=== PATIENT | male | born 1985 | race Caucasian/White ===

== ENCOUNTER 2023-11-29 16:18 | Inpatient (IN) | payer MEDICARE, OTHER ==
--- NOTE | 2023-11-29 16:55 | ED ---
General Adult HPI - General Chief complaint: Weakness Stated complaint: Diabetic, Pain Time Seen by Provider: 11/29/23 16:29 Source: patient, EMS, RN notes reviewed, old records reviewed Mode of arrival: EMS Limitations: no limitations, physical limitation - History of Present Illness Initial comments: Patient is a 38-year-old male who presents emergency department complaining of weakness episode as well as generalized body aches. Patient has a history of chronic hypoxic respiratory failure on 4 L nasal cannula, CKD and receives hemodialysis Thursday and Thursday. Also is a history of chronic weeping lower extremity wounds. States that his blood pressure this morning was low. States systolic was 100-110 which is normal for him. He has not missed any rounds of dialysis. States that when his pressure does drop like this he begins developing body aches. States he is having his typical symptoms complaining of bilateral shoulder aches, arm aches, chest wall aches, abdominal wall aches. Worse with movement as well as with palpation. Apparently dialysis run on Thursday was shorter due to blood pressure issues. Denies any fevers, chills, cough. Denies any nausea vomiting diarrhea. Endorses generalized bodyaches. Presents for further evaluation at this time. - Related Data Home Medications Medication Instructions Recorded Confirmed Atorvastatin [Lipitor] 20 mg PO DAILY 11/29/23 11/29/23 Calcium Acetate [Phoslo] 1,334 mg PO TID-W/MEALS 11/29/23 11/29/23 Glucagon Emergency Kit 1 mg IM DIRECTED PRN 11/29/23 11/29/23 Insulin Glargine,Hum.rec.anlog 10 units SQ HS 11/29/23 11/29/23 [Lantus Solostar Pen] Insulin Glargine,Hum.rec.anlog 20 units SQ DAILY 11/29/23 11/29/23 [Lantus Solostar Pen] Insulin Lispro [humaLOG Kwikpen] 5 unit SQ AC-TID 11/29/23 11/29/23 Insulin Lispro [humaLOG Kwikpen] See Protocol SQ AC-TID 11/29/23 11/29/23 Losartan [Cozaar] 25 mg PO DAILY 11/29/23 11/29/23 Mupirocin 2% Oint [Bactroban 2% 1 applic TOPICAL TID PRN 11/29/23 11/29/23 Oint] Ondansetron [Zofran] 4 mg PO Q12HR PRN 11/29/23 11/29/23 Pantoprazole Sodium [Protonix] 40 mg PO BID 11/29/23 11/29/23 Sertraline [Zoloft] 50 mg PO DAILY 11/29/23 11/29/23 amLODIPine [Norvasc] 5 mg PO DAILY 11/29/23 11/29/23 carvediloL [Coreg] 25 mg PO BID 11/29/23 11/29/23 hydrALAZINE HCL [Apresoline] 100 mg PO TID 11/29/23 11/29/23 Allergies Allergy/AdvReac Type Severity Reaction Status Date / Time sulfamethoxazole Allergy Rash/Hives Verified 11/29/23 18:50 [From Bactrim] trimethoprim [From Bactrim] Allergy Rash/Hives Verified 11/29/23 18:50 Iodinated Contrast Media AdvReac Intermediate Nausea & Verified 11/29/23 18:50 Vomiting acetaminophen [From [place]] AdvReac Nausea & Verified 11/29/23 18:50 Vomiting gabapentin AdvReac Confusion Verified 11/29/23 18:50 hydrocodone [From [place]] AdvReac Nausea & Verified 11/29/23 18:50 Vomiting Review of Systems ROS Statement: Those systems with pertinent positive or pertinent negative responses have been documented in the HPI. Review of Systems: CONST: Denies fever EYES: Denies blurry vision ENT: Denies nasal congestion C/V: Denies Chest pain RESP: Denies shortness of breath GI: Denies abdominal pain : Denies dysuria SKIN: Denies rash. MSK: Endorses body aches NEURO: Denies headache ROS Other: All systems not noted in ROS Statement are negative. Past Medical History Past Medical History: Diabetes Mellitus, Hypertension, Renal Disease History of Any Multi-Drug Resistant Organisms: MRSA Past Psychological History: Anxiety, Depression Smoking Status: Former smoker Past Alcohol Use History: None Reported Past Drug Use History: None Reported General Exam - General Exam Comments Initial Comments: General: Appears in no acute distress. HEAD: Normal with no signs of head trauma. EYES: PERRLA, EOMI, conjunctiva normal, no discharge. ENT: Hearing grossly intact, normal oropharynx. RESPIRATORY: Clear breath sounds bilaterally. No wheezes, rales, or rhonchi. C/V: Regular rate and rhythm. S1 and S2 auscultated, peripheral pulses 2+ and intact throughout. Left upper extremity AV fistula has palpable thrill and audible bruit. ABD: Abd is soft, nontender, nondistended EXT: Normal range of motion, no obvious deformity SKIN: Chronic weeping lower extremity wounds. Recently completed a course of antibiotics within the last few weeks. NEURO: Alert and oriented x 4. Cranial nerves II-XII intact. No focal sensory or strength deficits. Limitations: no limitations, physical limitation Course Vital Signs 11/29/23 11/29/23 16:37 22:42 Pulse Rate 94 94 Respiratory 16 18 Rate Blood Pressure 143/72 151/90 O2 Sat by Pulse 100 100 Oximetry Medical Decision Making - Medical Decision Making Was pt. sent in by a medical professional or institution (, [facility], [employer], urgent care, hospital, or long-term...) When possible be specific @ -No Did you speak to anyone other than the patient for history (EMS, parent, family, police, friend...)? What history was obtained from this source @ -No Did you review nursing and triage notes (agree or disagree)? Why? @ -I reviewed and agree with nursing and triage notes Were old charts reviewed (outside hosp., previous admission, EMS record, old EKG, old radiological studies, urgent care reports/EKG's, long-term records)? Report findings @ -No old charts were reviewed Differential Diagnosis (chest pain, altered mental status, abdominal pain women, abdominal pain men, vaginal bleeding, weakness, fever, dyspnea, syncope, headache, dizziness, GI bleed, back pain, seizure, CVA, palpatations, mental health, musculoskeletal)? @ -Differential Weakness: Hypoglycemia, shock, sepsis, hyponatremia, anemia, infection, AR, ETOH, adverse medicine reaction, overdose, stroke, this is not meant to be an all-inclusive list. EKG interpreted by me (3pts min.). @ -As above X-rays interpreted by me (1pt min.). @ -Chest x-ray reveals no obvious acute cardiopulmonary process. CT interpreted by me (1pt min.). @ -None done U/S interpreted by me (1pt. min.). @ -None done What testing was considered but not performed or refused? (CT, X-rays, U/S, labs)? Why? @ -None What meds were considered but not given or refused? Why? @ -None Did you discuss the management of the patient with other professionals (professionals i.e. , PA, [employer], lab, RT, psych nurse, long term care social worker, registered representative, teacher, chairman and chief executive officer, special education case manager)? Give summary @ -I spoke with nephrology on-call Dr. Ames who was in agreement the plan for the hyperkalemia cocktail consisting of the calcium, Lokelma, bicarb, insulin. Requested that I obtain repeat potassium and call him back. This will be done. Repeat potassium did show improvement with potassium now being 5.6. I did discuss with Dr. Ames who recommended an additional dose of Lokelma and morning labs. No need for emergent dialysis this evening. I spoke with the admitting team, HAKEEM Bernal of [facility] accepted the admission. Was smoking cessation discussed for >3mins.? @ -No Was critical care preformed (if so, how long)? @ -Yes 38 minutes Were there social determinants of health that impacted care today? How? (Homelessness, low income, unemployed, alcoholism, drug addiction, transportation, low edu. Level, literacy, decrease access to med. care, assisted, rehab)? @ -No Was there de-escalation of care discussed even if they declined (Discuss DNR or withdrawal of care, Hospice)? DNR status @ -No What co-morbidities impacted this encounter? (DM, HTN, Smoking, COPD, CAD, Cancer, CVA, ARF, Chemo, Hep., AIDS, mental health diagnosis, sleep apnea, morbid obesity)? @ -None Was patient admitted / discharged? Hospital course, mention meds given and route, prescriptions, significant lab abnormalities, going to OR and other pertinent info. @ -Patient is a diabetic, on dialysis. Has not missed any rounds but did have a shorter run on Thursday. Is due to have dialysis tomorrow. Is endorsing generalized body aches which occurs when his blood pressure runs low which happened this morning. He is still having generalized bodyaches of his abdomen, back, bilateral shoulders, bilateral chest wall worse with palpation as well as with movements. Experiences this regularly in the past. Presents for further evaluation at this time. Vital signs currently within acceptable limits. He will receive IV analgesia meds and Zofran. Will obtain basic labs as well as chest x-ray and screening EKG. Patient in agreement this plan. Chest x-ray shows no obvious acute cardiopulmonary process. EKG shows no signs of acute ischemia. Patient's laboratory studies returned remarkable for anemia with a hemoglobin of 10.6. Patient's labs support mild DKA with VBG showing acidosis with pH of 7.29, bicarb of 18. Patient also has positive acetone's in the blood. Blood glucose is 243. Labs also remarkable for the anion gap metabolic acidosis as well as hyperkalemia at 6.8. Patient given hyperkalemia cocktail minus albuterol due to patient declining due to previous reactions. Patient was also started on insulin drip for DKA. Patient will be empirically started on vancomycin for his lower extremity infections. Patient was in agreement this plan. He will be admitted. I spoke with nephrology on-call Dr. Ames who was in agreement the plan for the hyperkalemia cocktail consisting of the calcium, Lokelma, bicarb, insulin. Requ ested that I obtain repeat potassium and call him back. This will be done. Repeat potassium did show improvement with potassium now being 5.6. I did discuss with Dr. Ames who recommended an additional dose of Lokelma and morning labs. No need for emergent dialysis this evening. Patient was in agreement this plan. Dr. Lind of infectious disease consulted for the legs. I spoke with the adm itting team, HAKEEM Bernal of [facility] accepted the admission. Undiagnosed new problem with uncertain prognosis? @ -No Drug Therapy requiring intensive monitoring for toxicity (Heparin, Nitro, Insulin, Cardizem)? @ -No Were any procedures done? @ -No Diagnosis/symptom? @ -Lower extremity cellulitis, DKA, hyperkalemia in the setting of ESRD on hemodialysis Acute, or Chronic, or Acute on Chronic? @ -Acute Uncomplicated (without systemic symptoms) or Complicated (systemic symptoms)? @ -Complicated Side effects of treatment? @ -None Exacerbation, Progression, or Severe Exacerbation] @ -No Poses a threat to life or bodily function? @ -Yes - Lab Data Result diagrams: 11/29/23 17:36 11/29/23 21:30 Lab Results 11/29/23 11/29/23 11/29/23 Range/Units 17:36 17:36 17:36 WBC 8.8 (3.8-10.6) k/uL RBC 3.68 L (4.30-5.90) m/uL Hgb 10.6 L (13.0-17.5) gm/dL Hct 34.6 L (39.0-53.0) % MCV 93.8 (80.0-100.0) fL MCH 28.9 (25.0-35.0) pg MCHC 30.8 L (31.0-37.0) g/dL RDW 15.8 H (11.5-15.5) % Plt Count 247 (150-450) k/uL MPV 7.7 Neutrophils % 80 % Lymphocytes % 7 % Monocytes % 8 % Eosinophils % 3 % Basophils % 1 % Neutrophils # 7.0 (1.3-7.7) k/uL Lymphocytes # 0.6 L (1.0-4.8) k/uL Monocytes # 0.7 (0-1.0) k/uL Eosinophils # 0.3 (0-0.7) k/uL Basophils # 0.1 (0-0.2) k/uL Hypochromasia Moderate PT 11.3 (10.0-12.5) sec INR 1.0 (<1.2) APTT 28.0 (22.0-30.0) sec VBG pH (7.31-7.41) VBG pCO2 (37-51) mmHg VBG HCO3 (24-28) mmol/L Sodium 137 (137-145) mmol/L Potassium 6.8 H* (3.5-5.1) mmol/L Chloride 102 (98-107) mmol/L Carbon Dioxide 12 L (22-30) mmol/L Anion Gap 23 mmol/L BUN 91 H (9-20) mg/dL Creatinine 8.38 H* (0.66-1.25) mg/dL Est GFR (CKD-EPI)AfAm 8 (>60 ml/min/1.73 sqM) Est GFR (CKD-EPI)NonAf 7 (>60 ml/min/1.73 sqM) Glucose 243 H (74-99) mg/dL Plasma Lactic Acid Karl (0.7-2.0) mmol/L Calcium 7.7 L (8.4-10.2) mg/dL Magnesium 2.3 (1.6-2.3) mg/dL Total Bilirubin 1.1 (0.2-1.3) mg/dL AST 39 (17-59) U/L ALT 24 (4-49) U/L Alkaline Phosphatase 906 H (38-126) U/L Total Protein 8.2 (6.3-8.2) g/dL Albumin 4.0 (3.5-5.0) g/dL Acetone, Qual Positive (Negative) Influenza Type A (PCR) (Not Detectd) Influenza Type B (PCR) (Not Detectd) RSV (PCR) (Not Detectd) SARS-CoV-2 (PCR) (Not Detectd) 11/29/23 11/29/23 11/29/23 Range/Units 17:36 17:36 17:36 WBC (3.8-10.6) k/uL RBC (4.30-5.90) m/uL Hgb (13.0-17.5) gm/dL Hct (39.0-53.0) % MCV (80.0-100.0) fL MCH (25.0-35.0) pg MCHC (31.0-37.0) g/dL RDW (11.5-15.5) % Plt Count (150-450) k/uL MPV Neutrophils % % Lymphocytes % % Monocytes % % Eosinophils % % Basophils % % Neutrophils # (1.3-7.7) k/uL Lymphocytes # (1.0-4.8) k/uL Monocytes # (0-1.0) k/uL Eosinophils # (0-0.7) k/uL Basophils # (0-0.2) k/uL Hypochromasia PT (10.0-12.5) sec INR (<1.2) APTT (22.0-30.0) sec VBG pH 7.29 L (7.31-7.41) VBG pCO2 38 (37-51) mmHg VBG HCO3 18 L (24-28) mmol/L Sodium (137-145) mmol/L Potassium (3.5-5.1) mmol/L Chloride (98-107) mmol/L Carbon Dioxide (22-30) mmol/L Anion Gap mmol/L BUN (9-20) mg/dL Creatinine (0.66-1.25) mg/dL Est GFR (CKD-EPI)AfAm (>60 ml/min/1.73 sqM) Est GFR (CKD-EPI)NonAf (>60 ml/min/1.73 sqM) Glucose (74-99) mg/dL Plasma Lactic Acid Karl 1.1 (0.7-2.0) mmol/L Calcium (8.4-10.2) mg/dL Magnesium (1.6-2.3) mg/dL Total Bilirubin (0.2-1.3) mg/dL AST (17-59) U/L ALT (4-49) U/L Alkaline Phosphatase (38-126) U/L Total Protein (6.3-8.2) g/dL Albumin (3.5-5.0) g/dL Acetone, Qual (Negative) Influenza Type A (PCR) Not Detected (Not Detectd) Influenza Type B (PCR) Not Detected (Not Detectd) RSV (PCR) Not Detected (Not Detectd) SARS-CoV-2 (PCR) Not Detected (Not Detectd) - EKG Data -: EKG Interpreted by Me EKG Comments: 12-lead Electrocardiogram Interpretation Note EKG was reviewed and interpreted by myself. 12-lead ECG performed at default value is interpreted by me as revealing normal sinus rhythm at a rate of default value beats per minute. Hartman is normal. There were no ST or T wave abnormalities to suggest myocardial ischemia or injury. R wave progression across the precordium was satisfactory. By my interpretation this EKG is non- diagnostic for acute ischemia. Disposition Clinical Impression: DKA (diabetic ketoacidosis), ESRD on hemodialysis, Bilateral lower leg cellulitis, Hyperkalemia Disposition: ADMITTED IP TO THIS HOSP Condition: Serious Time of Disposition: 19:35
[2023-11-29] MEDS: MORPHINE SULFATE 4 MG/ML SYRINGE IVP STA ×2 (17:28→18:52)
[2023-11-29] MEDS: ONDANSETRON 4 MG/2 ML VIAL IVP STA (17:29)
[2023-11-29 17:52] LABS: VBG PH 7.29 (7.31-7.41)
[2023-11-29 17:53] LABS: Basophils # (A) 0.1 k/uL (0-0.2); Basophils % (A) 1 %; Eosinophils # (A) 0.3 k/uL (0-0.7); Eosinophils % (A) 3 %; HCT 34.6 % (39.0-53.0); HGB 10.6 gm/dL (13.0-17.5); Hypochromasia Moderate; Lymphocytes # (A) 0.6 k/uL (1.0-4.8); Lymphocytes % (A) 7 %; MCH 28.9 pg (25.0-35.0); MCHC 30.8 g/dL (31.0-37.0); MCV 93.8 fL (80.0-100.0); Mean Platelet Volume 7.7; Monocytes # (A) 0.7 k/uL (0-1.0); Monocytes % (A) 8 %; Neutrophils % (A) 80 %; Platelet Count 247 k/uL (150-450); RBC 3.68 m/uL (4.30-5.90); RDW 15.8 % (11.5-15.5); WBC 8.8 k/uL (3.8-10.6)
--- NOTE | 2023-11-29 17:59 | XR ---
EXAMINATION TYPE: XR chest 2V DATE OF EXAM: 11/29/2023 5:49 PM CLINICAL INDICATION:Male, 38 years old with history of Weakness; COMPARISON: None TECHNIQUE: XR chest 2V Frontal view of the chest. FINDINGS: Lungs/Pleura: Low lung volumes are present. There is no evidence of pleural effusion, focal consolida tion, or pneumothorax. Pulmonary vascularity: Unremarkable. Heart/mediastinum: Cardiomediastinal silhouette is unremarkable. Musculoskeletal: No acute osseous pathology. Other findings: None IMPRESSION: Low lung volumes with a generalized hazy appearance which could represent atelectasis.
[2023-11-29 18:02] LABS: Prothrombin Time 11.3 sec (10.0-12.5)
[2023-11-29 18:08] LABS: ALT 24 U/L (4-49); AST 39 U/L (17-59); African American GFR (CKD) 8 (>60 ml/min/1.73 sqM); Alkaline Phosphatase 906 U/L (38-126); Anion Gap 23 mmol/L; Blood Urea Nitrogen 91 mg/dL (9-20); Calcium 7.7 mg/dL (8.4-10.2); Carbon Dioxide 12 mmol/L (22-30); Chloride 102 mmol/L (98-107); Glucose 243 mg/dL (74-99); Magnesium 2.3 mg/dL (1.6-2.3); Non-African American GFR(CKD) 7 (>60 ml/min/1.73 sqM); Sodium 137 mmol/L (137-145); Total Bilirubin 1.1 mg/dL (0.2-1.3); Total Protein 8.2 g/dL (6.3-8.2)
[2023-11-29 18:21] LABS: Potassium 6.8 mmol/L (3.5-5.1)
[2023-11-29] MEDS ORDERED: VANCOMYCIN IV PER PHARMACY 1 EACH MISC MISCELLANE PRN (18:41)
[2023-11-29] MEDS ORDERED: DEXTROSE 50% SYRINGE 50 ML IVP PRN (18:44)
[2023-11-29] MEDS ORDERED: Potassium Replacement Protocol 1 EACH MISC MISCELLANE PRN (18:44)
[2023-11-29] MEDS ORDERED: Magnesium Replacement Protocol 1 EACH MISC MISCELLANE PRN (18:44)
[2023-11-29] MEDS: CALCIUM GLUCONATE IN NACL 1 GM in SALINE 1 100ML.BAG IVPB ONE (19:17)
[2023-11-29] MEDS: ALBUTEROL NEB (CONC) 2.5 MG/0.5 ML INHALATION ONE (19:18)
[2023-11-29] MEDS: SODIUM BICARB 8.4% 50 ML SYR (1 MEQ/ML) IV ONE (19:18)
[2023-11-29] MEDS: SODIUM ZIRCONIUM CYCLOSILICATE 10 GM PACKET PO ONE ×2 (19:18→23:30)
[2023-11-29] MEDS ORDERED: NALOXONE 0.4 MG/ML 1 ML VIAL IV PRN (19:45)
[2023-11-29 20:26] LABS: Glucose,Whole Blood 289 mg/dL (70-110)
[2023-11-29] MEDS: INSULIN REGULAR BOLUS (FROM DRIP BAG) IV ONE (20:46)
[2023-11-29] MEDS: DEXTROSE 50% SYRINGE 50 ML IVP PRN (21:00)
[2023-11-29] MEDS: INSULIN REGULAR 100 UNIT/ML VIAL (IV) IV ONE (21:00)
[2023-11-29] MEDS: INSULIN REGULAR 100 UNIT in SODIUM CHLORIDE 0.9% 100 ML IV SCH (21:04)
[2023-11-29] MEDS: DEXTROSE 5%-0.45% NACL 1,000 ML IV SCH (21:05)
[2023-11-29 21:58] LABS: Glucose,Whole Blood 279 mg/dL (70-110)
[2023-11-29 22:09] LABS: African American GFR (CKD) 8 (>60 ml/min/1.73 sqM); Anion Gap 27 mmol/L; Blood Urea Nitrogen 92 mg/dL (9-20); Carbon Dioxide 10 mmol/L (22-30); Chloride 101 mmol/L (98-107); Glucose 333 mg/dL (74-99); Non-African American GFR(CKD) 7 (>60 ml/min/1.73 sqM); Phosphorus 8.4 mg/dL (2.5-4.5); Potassium 5.6 mmol/L (3.5-5.1); Sodium 138 mmol/L (137-145)
[2023-11-29] MEDS: ALPRAZolam 0.25 MG TAB PO STA (23:03)
[2023-11-29] MEDS: VANCOMYCIN 1,250 MG in SODIUM CHLORIDE 0.9% 250 ML IVPB STA (23:03)
[2023-11-29 23:11] LABS: Glucose,Whole Blood 140 mg/dL (70-110)
[2023-11-29 23:59] LABS: Glucose,Whole Blood 75 mg/dL (70-110)
[2023-11-30] MEDS: CALCIUM ACETATE 667 MG TAB PO SCH (00:37)
[2023-11-30 00:43] LABS: Glucose,Whole Blood 43 mg/dL (70-110)
[2023-11-30 01:00] LABS: Glucose,Whole Blood 58 mg/dL (70-110)
[2023-11-30 01:15] LABS: Glucose,Whole Blood 105 mg/dL (70-110)
[2023-11-30 01:58] LABS: African American GFR (CKD) 8 (>60 ml/min/1.73 sqM); Anion Gap 22 mmol/L; Blood Urea Nitrogen 98 mg/dL (9-20); Carbon Dioxide 15 mmol/L (22-30); Chloride 101 mmol/L (98-107); Non-African American GFR(CKD) 7 (>60 ml/min/1.73 sqM); Phosphorus 7.9 mg/dL (2.5-4.5); Potassium 5.3 mmol/L (3.5-5.1); Sodium 138 mmol/L (137-145)
[2023-11-30 01:59] LABS: ALT 26 U/L (4-49); AST 39 U/L (17-59); African American GFR (CKD) 8 (>60 ml/min/1.73 sqM); Albumin 4.1 g/dL (3.5-5.0); Alkaline Phosphatase 772 U/L (38-126); Anion Gap 23 mmol/L; Blood Urea Nitrogen 97 mg/dL (9-20); Carbon Dioxide 14 mmol/L (22-30); Chloride 101 mmol/L (98-107); Glucose 103 mg/dL (74-99); Non-African American GFR(CKD) 7 (>60 ml/min/1.73 sqM); Potassium 5.4 mmol/L (3.5-5.1); Sodium 138 mmol/L (137-145); Total Bilirubin 0.9 mg/dL (0.2-1.3); Total Protein 8.5 g/dL (6.3-8.2)
[2023-11-30 02:06] LABS: Glucose,Whole Blood 160 mg/dL (70-110)
[2023-11-30 03:21] LABS: Glucose,Whole Blood 203 mg/dL (70-110)
[2023-11-30 04:11] LABS: Glucose,Whole Blood 242 mg/dL (70-110)
[2023-11-30] MEDS: MORPHINE SULFATE 4 MG/ML SYRINGE IV PRN (04:49)
[2023-11-30 05:23] LABS: Glucose,Whole Blood 282 mg/dL (70-110)
[2023-11-30 06:33] LABS: Glucose,Whole Blood 277 mg/dL (70-110)
[2023-11-30 06:58] LABS: Glucose,Whole Blood 233 mg/dL (70-110)
[2023-11-30 07:56] LABS: Glucose,Whole Blood 168 mg/dL (70-110)
[2023-11-30 08:11] LABS: Basophils # (A) 0.1 k/uL (0-0.2); Basophils % (A) 1 %; Eosinophils # (A) 0.2 k/uL (0-0.7); Eosinophils % (A) 2 %; HCT 29.4 % (39.0-53.0); HGB 9.2 gm/dL (13.0-17.5); Lymphocytes # (A) 0.8 k/uL (1.0-4.8); Lymphocytes % (A) 8 %; MCH 28.4 pg (25.0-35.0); MCHC 31.2 g/dL (31.0-37.0); MCV 91.1 fL (80.0-100.0); Mean Platelet Volume 7.8; Monocytes # (A) 0.9 k/uL (0-1.0); Monocytes % (A) 9 %; Neutrophils # (A) 7.9 k/uL (1.3-7.7); Neutrophils % (A) 79 %; Platelet Count 267 k/uL (150-450); RBC 3.23 m/uL (4.30-5.90)
[2023-11-30 08:18] LABS: African American GFR (CKD) 8 (>60 ml/min/1.73 sqM); Anion Gap 21 mmol/L; Carbon Dioxide 17 mmol/L (22-30); Chloride 101 mmol/L (98-107); Glucose 188 mg/dL (74-99); Non-African American GFR(CKD) 7 (>60 ml/min/1.73 sqM); Phosphorus 8.8 mg/dL (2.5-4.5); Potassium 5.9 mmol/L (3.5-5.1); Sodium 139 mmol/L (137-145)
[2023-11-30 08:23] LABS: Blood Urea Nitrogen 105 mg/dL (9-20)
[2023-11-30 08:57] LABS: Glucose,Whole Blood 100 mg/dL (70-110)
[2023-11-30] MEDS ORDERED: LOSARTAN 25 MG TAB PO SCH (09:00)
[2023-11-30] MEDS ORDERED: Potassium Replacement Protocol 1 EACH MISC MISCELLANE PRN (09:44)
[2023-11-30] MEDS ORDERED: DEXTROSE 50% SYRINGE 50 ML IVP PRN (09:44)
[2023-11-30] MEDS ORDERED: Magnesium Replacement Protocol 1 EACH MISC MISCELLANE PRN (09:44)
[2023-11-30 10:21] LABS: Glucose,Whole Blood 69 mg/dL (70-110)
--- NOTE | 2023-11-30 11:39 | P.NPCON ---
History of Present Illness - Reason for Consult end stage renal disease - History of Present Illness Reason for consultation: End-stage renal disease History of present illness: Patient is a 38-year-old male seen in renal consultation for end-stage renal disease. He is maintained on hemodialysis on Thursday schedule via left upper extremity AV fistula. Patient came to the hospital due to low blood pressures. Patient states his blood pressure was in the systolic 100s and diastolic 70s. Patient states he felt weak. He denies falls or loss of consciousness. No fever or chills. No vomiting or diarrhea. Oral intake has been fair. Patient does have longstanding history of diabetes. Patient also has chronic lower extremity wounds for which he follows with podiatry. Patient states he completed antibiotics about a week ago. Blood pressures currently well-controlled. It was 127/75 this morning. He is currently on room air. Denies chest pain or shortness of breath. Denies history of coronary artery disease. Patient's blood sugars were noted to be quite elevated and he was treated with insulin drip which has now been discontinued. He is still receiving IV fluids. Vital signs are stable. General: No acute distress. HEENT: Head exam is unremarkable. LUNGS: No audible rhonchi or wheezes. HEART: Rate and Rhythm are regular. ABDOMEN: Nontender. EXTREMITITES: Lower extremity wounds noted. Past Medical History Past Medical History: Diabetes Mellitus, Hypertension, Renal Disease History of Any Multi-Drug Resistant Organisms: MRSA Date of last positivie culture/infection: 2013 MDRO Source:: foot Past Anesthesia/Blood Transfusion Reactions: Previous Problems w/ Anesthesia, Motion Sickness Past Psychological History: Anxiety, Depression Smoking Status: Former smoker Past Alcohol Use History: None Reported Past Drug Use History: None Reported Medications and Allergies Home Medications Medication Instructions Recorded Confirmed Type Atorvastatin [Lipitor] 20 mg PO DAILY 11/29/23 11/29/23 History Calcium Acetate [Phoslo] 1,334 mg PO TID-W/MEALS 11/29/23 11/29/23 History Glucagon Emergency Kit 1 mg IM DIRECTED PRN 11/29/23 11/29/23 History Insulin Glargine,Hum.rec.anlog 10 units SQ HS 11/29/23 11/29/23 History [Lantus Solostar Pen] Insulin Glargine,Hum.rec.anlog 20 units SQ DAILY 11/29/23 11/29/23 History [Lantus Solostar Pen] Insulin Lispro [humaLOG Kwikpen] 5 unit SQ AC-TID 11/29/23 11/29/23 History Insulin Lispro [humaLOG Kwikpen] See Protocol SQ AC-TID 11/29/23 11/29/23 History Losartan [Cozaar] 25 mg PO DAILY 11/29/23 11/29/23 History Mupirocin 2% Oint [Bactroban 2% 1 applic TOPICAL TID PRN 11/29/23 11/29/23 History Oint] Ondansetron [Zofran] 4 mg PO Q12HR PRN 11/29/23 11/29/23 History Pantoprazole Sodium [Protonix] 40 mg PO BID 11/29/23 11/29/23 History Sertraline [Zoloft] 50 mg PO DAILY 11/29/23 11/29/23 History amLODIPine [Norvasc] 5 mg PO DAILY 11/29/23 11/29/23 History carvediloL [Coreg] 25 mg PO BID 11/29/23 11/29/23 History hydrALAZINE HCL [Apresoline] 100 mg PO TID 11/29/23 11/29/23 History Allergies Allergy/AdvReac Type Severity Reaction Status Date / Time sulfamethoxazole Allergy Rash/Hives Verified 11/29/23 18:50 [From Bactrim] trimethoprim [From Bactrim] Allergy Rash/Hives Verified 11/29/23 18:50 Iodinated Contrast Media AdvReac Intermediate Nausea & Verified 11/29/23 18:50 Vomiting acetaminophen [From [place]] AdvReac Nausea & Verified 11/29/23 18:50 Vomiting gabapentin AdvReac Confusion Verified 11/29/23 18:50 hydrocodone [From [place]] AdvReac Nausea & Verified 11/29/23 18:50 Vomiting Physical Exam Vitals: Vital Signs Temp Pulse Pulse Resp BP BP Pulse Ox 11/30/23 09:10 98.2 F 91 18 127/75 100 11/30/23 04:47 94 18 141/80 100 11/30/23 02:37 97.4 F L 87 19 158/89 95 11/30/23 02:24 97.1 F L 87 18 152/45 99 11/29/23 22:42 94 18 151/90 100 11/29/23 16:37 94 16 143/72 100 Intake and Output 11/29/23 11/30/23 11/30/23 22:59 06:59 14:59 Intake Total 26.771 7.749 Balance 26.771 7.749 Intake: Intake, IV Titration 26.771 7.749 Amount Insulin Regular 100 unit 26.771 7.749 In Sodium Chloride 0.9% 100 ml @ 0.1 UNITS/KG/HR 7.788 mls/hr IV .[id number] [facility] Rx#:[id number] Other: Weight 77.111 kg 88.2 kg Results - Lab Results Most recent lab results Calcium 8.0 mg/dL (8.4-10.2) L 11/30/23 01:17 Phosphorus 8.8 mg/dL (2.5-4.5) H 11/30/23 06:17 Magnesium 2.3 mg/dL (1.6-2.3) 11/29/23 17:36 11/30/23 06:17 11/30/23 06:17 Assessment and Plan Plan: Assessment: 1. End-stage renal disease maintained on hemodialysis on Thursday schedule. 2. DKA status post insulin drip. 3. Hyperkalemia secondary to chronic kidney disease, hypertonicity. Improved. 4. Metabolic acidosis secondary to DKA and chronic kidney disease. 5. Anemia of chronic kidney disease. 6. Chronic kidney disease mineral bone disease maintained on PhosLo. 7. Hypertension with chronic kidney disease. Plan: Hep-Lock IV fluids. Hemodialysis today. Decrease dose of hydralazine to 50 mg 3 times daily. Hold for systolic blood pressure less than 120. Stop losartan and amlodipine. Tight blood sugar control. Check iron studies. Thank you for the consultation. I will continue to follow the patient with you during his hospital stay.
[2023-11-30 11:55] LABS: Glucose,Whole Blood 143 mg/dL (70-110)
[2023-11-30 12:36] LABS: Potassium 6.3 mmol/L (3.5-5.1)
[2023-11-30 12:52] LABS: Glucose,Whole Blood 199 mg/dL (70-110)
[2023-11-30] MEDS: ONDANSETRON 4 MG/2 ML VIAL IVP PRN (12:55)
[2023-11-30] MEDS: carvediloL 12.5 MG TAB PO SCH (13:41)
[2023-11-30] MEDS: SERTRALINE 50 MG TAB PO SCH (13:41)
[2023-11-30] MEDS: SODIUM CHLORIDE 0.9% 1,000 ML IV SCH (13:41)
[2023-11-30] MEDS: PANTOPRAZOLE 40 MG TABLET PO SCH (13:41)
[2023-11-30] MEDS: ATORVASTATIN 20 MG TAB PO SCH (13:41)
[2023-11-30] MEDS ORDERED: LIDOCAINE 4% CREAM 5 GM TUBE TOPICAL ONE (13:43)
[2023-11-30 13:46] VITALS: BMI 28.7
[2023-11-30 14:03] LABS: Glucose,Whole Blood 253 mg/dL (70-110)
--- NOTE | 2023-11-30 14:40 | P.HPIM ---
History of Present Illness H&P Date: 11/30/23 History of present illness; patient 38-year-old gentleman with past medical significant for end-stage renal disease on dialysis, diabetes mellitus presented to ER because of feeling of generalized weakness and bodyaches. Patient stated that he was all right a few days ago and started noticing that he was getting weak and he was having generalized body aches. Patient also complaining of abdominal pain. Patient was complaining of nausea and vomiting. Patient stated that he went to his dialysis session on Thursday but the session was cut short as he was not tolerating it and his blood pressure was low. Patient was also complaining of bilateral shoulder pains. There was no complaint of fever or chills. Patient states that he was compliant with his insulin regimen. Patient also is complaining of swelling of lower extremities and has noticed increased warmth and redness of lower extremities, patient also notes increased discharge. Because of the symptoms, patient went to the ER Initial lab work done in the ER showed WBC 8.8, hemoglobin 10.6, platelet count 247, sodium 137, potassium 6.8, BUN 91, creatinine 8.38 glucose is 243 lactate of 7.7 acetone is positive Influenza A not detected Influenza B not detected RSV not detected COVID-19 not detected EKG done in the ER showed heart rate of 94, no ST segment elevation or depression seen, no T-wave inversions seen. Chest x-ray done in the ER showed low lung volumes with generalized hazy appearance which could represent atelectasis Patient admitted to internal medicine service REVIEW OF SYSTEMS: CONSTITUTIONAL: As mentioned above HEENT: No recent visual problems or hearing problems. Denied any sore throat. CARDIOVASCULAR: No chest pain, orthopnea, PND, no palpitations, no syncope. PULMONARY: No shortness of breath, no cough, no hemoptysis. GASTROINTESTINAL: As mentioned above NEUROLOGICAL: No headaches, no weakness, no numbness. HEMATOLOGICAL: Denies any bleeding or petechiae. GENITOURINARY: Denies any burning micturition, frequency, or urgency. MUSCULOSKELETAL/RHEUMATOLOGICAL: Denies any joint pain, swelling, or any muscle pain. ENDOCRINE: Denies any polyuria or polydipsia. The rest of the 14-point review of systems is negative. PHYSICAL EXAMINATION: GENERAL: The patient is alert and oriented x3, not in any acute distress. Chronically ill looking HEENT: Pupils are round and equally reacting to light. EOMI. No scleral icterus. No conjunctival pallor. Normocephalic, atraumatic. No pharyngeal erythema. No thyromegaly. CARDIOVASCULAR: S1 and S2 present. No murmurs, rubs, or gallops. PULMONARY: Chest is clear to auscultation, no wheezing or crackles. ABDOMEN: Soft, nontender, nondistended, normoactive bowel sounds. No palpable organomegaly. MUSCULOSKELETAL: No joint swelling or deformity. EXTREMITIES: No cyanosis, clubbing, or pedal edema. NEUROLOGICAL: Gross neurological examination did not reveal any focal deficits. SKIN: Chronic bilateral lower extremity wounds seen Assessment and plan DKA Hyperkalemia Cellulitis of bilateral lower extremities Chronic lower extremity wounds End-stage renal disease on dialysis Insulin-dependent diabetes mellitus Metabolic acidosis secondary to DKA and chronic kidney disease. Anemia of chronic kidney disease. Monitor vital signs Monitor CBC Monitor CMP Continue telemetry monitoring Trend electrolytes every 4 hourly Continue insulin drip Start normal seen, once blood sugar less than 250, switch to D5 half-normal saline Start pharmacy dose vancomycin Consult nephrology for dialysis Consult ID Labs and medication were reviewed.. Continue same treatment. Continue with symptomatic treatment. Resume home medication. Monitor labs and vitals. DVT and GI prophylaxis. Further recommendations as per clinical course of the patient Dictation was produced using [employer] dictation software. please excuse any grammatical, word or spelling errors. Past Medical History Past Medical History: Diabetes Mellitus, Hypertension, Renal Disease History of Any Multi-Drug Resistant Organisms: MRSA Date of last positivie culture/infection: 2013 MDRO Source:: foot Past Anesthesia/Blood Transfusion Reactions: Previous Problems w/ Anesthesia, Motion Sickness Past Psychological History: Anxiety, Depression Smoking Status: Former smoker Past Alcohol Use History: None Reported Past Drug Use History: None Reported Medications and Allergies Home Medications Medication Instructions Recorded Confirmed Type Atorvastatin [Lipitor] 20 mg PO DAILY 11/29/23 11/29/23 History Calcium Acetate [Phoslo] 1,334 mg PO TID-W/MEALS 11/29/23 11/29/23 History Glucagon Emergency Kit 1 mg IM DIRECTED PRN 11/29/23 11/29/23 History Insulin Glargine,Hum.rec.anlog 10 units SQ HS 11/29/23 11/29/23 History [Lantus Solostar Pen] Insulin Glargine,Hum.rec.anlog 20 units SQ DAILY 11/29/23 11/29/23 History [Lantus Solostar Pen] Insulin Lispro [humaLOG Kwikpen] 5 unit SQ AC-TID 11/29/23 11/29/23 History Insulin Lispro [humaLOG Kwikpen] See Protocol SQ AC-TID 11/29/23 11/29/23 History Losartan [Cozaar] 25 mg PO DAILY 11/29/23 11/29/23 History Mupirocin 2% Oint [Bactroban 2% 1 applic TOPICAL TID PRN 11/29/23 11/29/23 History Oint] Ondansetron [Zofran] 4 mg PO Q12HR PRN 11/29/23 11/29/23 History Pantoprazole Sodium [Protonix] 40 mg PO BID 11/29/23 11/29/23 History Sertraline [Zoloft] 50 mg PO DAILY 11/29/23 11/29/23 History amLODIPine [Norvasc] 5 mg PO DAILY 11/29/23 11/29/23 History carvediloL [Coreg] 25 mg PO BID 11/29/23 11/29/23 History hydrALAZINE HCL [Apresoline] 100 mg PO TID 11/29/23 11/29/23 History Allergies Allergy/AdvReac Type Severity Reaction Status Date / Time sulfamethoxazole Allergy Rash/Hives Verified 11/29/23 18:50 [From Bactrim] trimethoprim [From Bactrim] Allergy Rash/Hives Verified 11/29/23 18:50 Iodinated Contrast Media AdvReac Intermediate Nausea & Verified 11/29/23 18:50 Vomiting acetaminophen [From [place]] AdvReac Nausea & Verified 11/29/23 18:50 Vomiting gabapentin AdvReac Confusion Verified 11/29/23 18:50 hydrocodone [From [place]] AdvReac Nausea & Verified 11/29/23 18:50 Vomiting Physical Exam Vitals: Vital Signs Temp Pulse Pulse Resp BP BP Pulse Ox 11/30/23 04:47 94 18 141/80 100 11/30/23 02:37 97.4 F L 87 19 158/89 95 11/30/23 02:24 97.1 F L 87 18 152/45 99 11/29/23 22:42 94 18 151/90 100 11/29/23 16:37 94 16 143/72 100 Intake and Output 11/29/23 11/30/23 11/30/23 22:59 06:59 14:59 Intake Total 26.771 7.749 Balance 26.771 7.749 Intake: Intake, IV Titration 26.771 7.749 Amount Insulin Regular 100 unit 26.771 7.749 In Sodium Chloride 0.9% 100 ml @ 0.1 UNITS/KG/HR 7.788 mls/hr IV .[id number] [facility] Rx#:[id number] Other: Weight 77.111 kg 88.2 kg Results CBC & Chem 7: 11/30/23 06:17 11/30/23 11:42 Labs: Abnormal Lab Results - Last 24 Hours (Table) 11/29/23 11/29/23 11/29/23 Range/Units 17:36 17:36 17:36 RBC 3.68 L (4.30-5.90) m/uL Hgb 10.6 L (13.0-17.5) gm/dL Hct 34.6 L (39.0-53.0) % MCHC 30.8 L (31.0-37.0) g/dL RDW 15.8 H (11.5-15.5) % Neutrophils # (1.3-7.7) k/uL Lymphocytes # 0.6 L (1.0-4.8) k/uL VBG pH 7.29 L (7.31-7.41) VBG HCO3 18 L (24-28) mmol/L Potassium 6.8 H* (3.5-5.1) mmol/L Carbon Dioxide 12 L (22-30) mmol/L BUN 91 H (9-20) mg/dL Creatinine 8.38 H* (0.66-1.25) mg/dL Glucose 243 H (74-99) mg/dL POC Glucose (mg/dL) (70-110) mg/dL Calcium 7.7 L (8.4-10.2) mg/dL Phosphorus (2.5-4.5) mg/dL Alkaline Phosphatase 906 H (38-126) U/L Total Protein (6.3-8.2) g/dL 11/29/23 11/29/23 11/29/23 Range/Units 20:24 21:30 21:56 RBC (4.30-5.90) m/uL Hgb (13.0-17.5) gm/dL Hct (39.0-53.0) % MCHC (31.0-37.0) g/dL RDW (11.5-15.5) % Neutrophils # (1.3-7.7) k/uL Lymphocytes # (1.0-4.8) k/uL VBG pH (7.31-7.41) VBG HCO3 (24-28) mmol/L Potassium 5.6 H (3.5-5.1) mmol/L Carbon Dioxide 10 L (22-30) mmol/L BUN 92 H (9-20) mg/dL Creatinine 8.75 H* (0.66-1.25) mg/dL Glucose 333 H (74-99) mg/dL POC Glucose (mg/dL) 289 H 279 H (70-110) mg/dL Calcium (8.4-10.2) mg/dL Phosphorus 8.4 H (2.5-4.5) mg/dL Alkaline Phosphatase (38-126) U/L Total Protein (6.3-8.2) g/dL 11/29/23 11/30/23 11/30/23 Range/Units 23:08 00:42 00:58 RBC (4.30-5.90) m/uL Hgb (13.0-17.5) gm/dL Hct (39.0-53.0) % MCHC (31.0-37.0) g/dL RDW (11.5-15.5) % Neutrophils # (1.3-7.7) k/uL Lymphocytes # (1.0-4.8) k/uL VBG pH (7.31-7.41) VBG HCO3 (24-28) mmol/L Potassium (3.5-5.1) mmol/L Carbon Dioxide (22-30) mmol/L BUN (9-20) mg/dL Creatinine (0.66-1.25) mg/dL Glucose (74-99) mg/dL POC Glucose (mg/dL) 140 H 43 L* 58 L (70-110) mg/dL Calcium (8.4-10.2) mg/dL Phosphorus (2.5-4.5) mg/dL Alkaline Phosphatase (38-126) U/L Total Protein (6.3-8.2) g/dL 11/30/23 11/30/23 11/30/23 Range/Units 01:17 01:17 02:05 RBC (4.30-5.90) m/uL Hgb (13.0-17.5) gm/dL Hct (39.0-53.0) % MCHC (31.0-37.0) g/dL RDW (11.5-15.5) % Neutrophils # (1.3-7.7) k/uL Lymphocytes # (1.0-4.8) k/uL VBG pH (7.31-7.41) VBG HCO3 (24-28) mmol/L Potassium 5.4 H 5.3 H (3.5-5.1) mmol/L Carbon Dioxide 14 L 15 L (22-30) mmol/L BUN 97 H 98 H (9-20) mg/dL Creatinine 8.45 H* 8.71 H* (0.66-1.25) mg/dL Glucose 103 H (74-99) mg/dL POC Glucose (mg/dL) 160 H (70-110) mg/dL Calcium 8.0 L (8.4-10.2) mg/dL Phosphorus 8.0 H 7.9 H (2.5-4.5) mg/dL Alkaline Phosphatase 772 H (38-126) U/L Total Protein 8.5 H (6.3-8.2) g/dL 11/30/23 11/30/23 11/30/23 Range/Units 03:20 04:08 05:21 RBC (4.30-5.90) m/uL Hgb (13.0-17.5) gm/dL Hct (39.0-53.0) % MCHC (31.0-37.0) g/dL RDW (11.5-15.5) % Neutrophils # (1.3-7.7) k/uL Lymphocytes # (1.0-4.8) k/uL VBG pH (7.31-7.41) VBG HCO3 (24-28) mmol/L Potassium (3.5-5.1) mmol/L Carbon Dioxide (22-30) mmol/L BUN (9-20) mg/dL Creatinine (0.66-1.25) mg/dL Glucose (74-99) mg/dL POC Glucose (mg/dL) 203 H 242 H 282 H (70-110) mg/dL Calcium (8.4-10.2) mg/dL Phosphorus (2.5-4.5) mg/dL Alkaline Phosphatase (38-126) U/L Total Protein (6.3-8.2) g/dL 11/30/23 11/30/23 11/30/23 Range/Units 06:07 06:17 06:17 RBC 3.23 L (4.30-5.90) m/uL Hgb 9.2 L (13.0-17.5) gm/dL Hct 29.4 L (39.0-53.0) % MCHC (31.0-37.0) g/dL RDW 16.0 H (11.5-15.5) % Neutrophils # 7.9 H (1.3-7.7) k/uL Lymphocytes # 0.8 L (1.0-4.8) k/uL VBG pH (7.31-7.41) VBG HCO3 (24-28) mmol/L Potassium 5.9 H (3.5-5.1) mmol/L Carbon Dioxide 17 L (22-30) mmol/L BUN 105 H* (9-20) mg/dL Creatinine 9.17 H* (0.66-1.25) mg/dL Glucose 188 H (74-99) mg/dL POC Glucose (mg/dL) 277 H (70-110) mg/dL Calcium (8.4-10.2) mg/dL Phosphorus 8.8 H (2.5-4.5) mg/dL Alkaline Phosphatase (38-126) U/L Total Protein (6.3-8.2) g/dL 11/30/23 11/30/23 Range/Units 06:55 07:55 RBC (4.30-5.90) m/uL Hgb (13.0-17.5) gm/dL Hct (39.0-53.0) % MCHC (31.0-37.0) g/dL RDW (11.5-15.5) % Neutrophils # (1.3-7.7) k/uL Lymphocytes # (1.0-4.8) k/uL VBG pH (7.31-7.41) VBG HCO3 (24-28) mmol/L Potassium (3.5-5.1) mmol/L Carbon Dioxide (22-30) mmol/L BUN (9-20) mg/dL Creatinine (0.66-1.25) mg/dL Glucose (74-99) mg/dL POC Glucose (mg/dL) 233 H 168 H (70-110) mg/dL Calcium (8.4-10.2) mg/dL Phosphorus (2.5-4.5) mg/dL Alkaline Phosphatase (38-126) U/L Total Protein (6.3-8.2) g/dL Thrombosis Risk Factor Assmnt - Choose All That Apply Any of the Below Risk Factors Present?: Yes Each Factor Represents 1 point: Obesity (BMI >25), Swollen legs (current) Thrombosis Risk Factor Assessment Total Risk Factor Score: 2 Thrombosis Risk Factor Assessment Level: Low Risk
[2023-11-30] MEDS: METOCLOPRAMIDE 5 MG/ML 2 ML VIAL IVP PRN (14:51)
[2023-11-30] MEDS: amLODIPine 5 MG TAB PO SCH (15:59)
[2023-11-30] MEDS: hydrALAZINE HCL 50 MG TAB PO SCH ×2 (15:59→17:07)
[2023-11-30 16:13] LABS: Potassium 5.5 mmol/L (3.5-5.1)
[2023-11-30] MEDS: LIDOCAINE-PRILOCAINE 2.5-2.5% CREAM 5 GM TUBE TOPICAL STA (16:30)
[2023-11-30 17:09] LABS: Glucose,Whole Blood 285 mg/dL (70-110)
[2023-11-30] MEDS: MIDODRINE 5 MG TAB PO PRN (17:13)
[2023-11-30] MEDS: INSULIN ASPART (NovoLOG) 100 UNIT/ML VIAL SQ SCH (17:58)
[2023-11-30] MEDS: INSULIN DETEMIR (LEVEMIR) 100 UNIT/ML SYR SQ SCH ×2 (18:09→22:19)
[2023-11-30 20:05] LABS: Glucose,Whole Blood 174 mg/dL (70-110)
[2023-11-30] MEDS: VANCOMYCIN 1,250 MG in SODIUM CHLORIDE 0.9% 250 ML IVPB ONE (20:49)
[2023-11-30 20:56] LABS: Potassium 4.1 mmol/L (3.5-5.1)
[2023-12-01 01:16] LABS: Potassium 4.8 mmol/L (3.5-5.1)
[2023-12-01 02:07] LABS: Glucose,Whole Blood 122 mg/dL (70-110)
[2023-12-01 04:24] LABS: Glucose,Whole Blood 48 mg/dL (70-110)
[2023-12-01 04:45] LABS: Glucose,Whole Blood 54 mg/dL (70-110)
[2023-12-01 05:07] LABS: Glucose,Whole Blood 66 mg/dL (70-110)
[2023-12-01] MEDS: DEXTROSE 50% SYRINGE 50 ML IVP PRN (05:21)
[2023-12-01 05:41] LABS: Glucose,Whole Blood 112 mg/dL (70-110)
--- NOTE | 2023-12-01 08:57 | P.CONS ---
History of Present Illness - Reason for Consult Consult date: 11/30/23 Cellulitis Requesting physician: Alexandre Segovia - Chief Complaint Increasing swelling redness to the legs x days - History of Present Illness Patient is a 38-year-old male with a past medical history significant for diabetes mellitus hypertension patient did have a end-stage renal disease on dialysis and apparently previously was tried on peritoneal dialysis that has not worked subsequently the patient did have problems with recurrent ascites and also have bilateral lower extremity ulceration and cellulitis recently completed a course of oral antibiotics however the patient mother is not clear about the name of those antibiotics patient has been brought into the hospital for evaluation of weakness and generalized bodyaches and apparently the patient blood pressure has been running low the day of presentation to the hospital patient also having worsening swelling to bilateral lower extremity with weeping edema and did have some foul-smelling drainage as reported by the mother patient describes the pain to be getting worse over the last few days to be contact aching to sharp moderate intensity without any radiation with the symptoms the patient has been evaluated on presentation to the hospital the patient was afebrile patient has mild tachycardia but not hypotension or hypoxemia patient did have a white count of 8.8 BUN/creatinine has been elevated potassium was 5 point 6 repeat is 4.1 liver isms are normal influenza RSV COVID testing was negative local and blood culture pain patient be started on vancomycin infectious disease was consulted for lower extremity cellulitis Review of Systems Positive point and negatives has been mentioned in the HPI, complete review of systems was performed and all other systems are negative Past Medical History Past Medical History: Diabetes Mellitus, Hypertension, Renal Disease History of Any Multi-Drug Resistant Organisms: MRSA Year Discovered:: 2013 MDRO Source:: foot Past Anesthesia/Blood Transfusion Reactions: Previous Problems w/ Anesthesia, Motion Sickness Past Psychological History: Anxiety, Depression Smoking Status: Former smoker Past Alcohol Use History: None Reported Past Drug Use History: None Reported Medications and Allergies Home Medications Medication Instructions Recorded Confirmed Type Atorvastatin [Lipitor] 20 mg PO DAILY 11/29/23 11/29/23 History Calcium Acetate [Phoslo] 1,334 mg PO TID-W/MEALS 11/29/23 11/29/23 History Glucagon Emergency Kit 1 mg IM DIRECTED PRN 11/29/23 11/29/23 History Insulin Glargine,Hum.rec.anlog 10 units SQ HS 11/29/23 11/29/23 History [Lantus Solostar Pen] Insulin Glargine,Hum.rec.anlog 20 units SQ DAILY 11/29/23 11/29/23 History [Lantus Solostar Pen] Insulin Lispro [humaLOG Kwikpen] 5 unit SQ AC-TID 11/29/23 11/29/23 History Insulin Lispro [humaLOG Kwikpen] See Protocol SQ AC-TID 11/29/23 11/29/23 History Losartan [Cozaar] 25 mg PO DAILY 11/29/23 11/29/23 History Mupirocin 2% Oint [Bactroban 2% 1 applic TOPICAL TID PRN 11/29/23 11/29/23 History Oint] Ondansetron [Zofran] 4 mg PO Q12HR PRN 11/29/23 11/29/23 History Pantoprazole Sodium [Protonix] 40 mg PO BID 11/29/23 11/29/23 History Sertraline [Zoloft] 50 mg PO DAILY 11/29/23 11/29/23 History amLODIPine [Norvasc] 5 mg PO DAILY 11/29/23 11/29/23 History carvediloL [Coreg] 25 mg PO BID 11/29/23 11/29/23 History hydrALAZINE HCL [Apresoline] 100 mg PO TID 11/29/23 11/29/23 History Allergies Allergy/AdvReac Type Severity Reaction Status Date / Time sulfamethoxazole Allergy Rash/Hives Verified 11/29/23 18:50 [From Bactrim] trimethoprim [From Bactrim] Allergy Rash/Hives Verified 11/29/23 18:50 Iodinated Contrast Media AdvReac Intermediate Nausea & Verified 11/29/23 18:50 Vomiting acetaminophen [From [place]] AdvReac Nausea & Verified 11/29/23 18:50 Vomiting gabapentin AdvReac Confusion Verified 11/29/23 18:50 hydrocodone [From [place]] AdvReac Nausea & Verified 11/29/23 18:50 Vomiting Physical Exam Vitals: Vital Signs Temp Pulse Pulse Resp BP BP Pulse Ox 11/30/23 09:10 98.2 F 91 18 127/75 100 11/30/23 04:47 94 18 141/80 100 11/30/23 02:37 97.4 F L 87 19 158/89 95 11/30/23 02:24 97.1 F L 87 18 152/45 99 11/29/23 22:42 94 18 151/90 100 11/29/23 16:37 94 16 143/72 100 Intake and Output 11/29/23 11/30/23 11/30/23 22:59 06:59 14:59 Intake Total 26.771 7.749 Balance 26.771 7.749 Intake: Intake, IV Titration 26.771 7.749 Amount Insulin Regular 100 unit 26.771 7.749 In Sodium Chloride 0.9% 100 ml @ 0.1 UNITS/KG/HR 7.788 mls/hr IV .[id number] [facility] Rx#:[id number] Other: Weight 77.111 kg 88.2 kg GENERAL DESCRIPTION: Middle-aged male up in bed, no distress. No tachypnea or accessory muscle of respiration use. HEENT: Shows Pallor , no scleral icterus. Oral mucous membrane is dry. No pharyngeal erythema or thrush NECK: Trachea central, no thyromegaly. LUNGS: Unlabored breathing. Clear to auscultation anteriorly. No wheeze or crackle. HEART: S1, S2, regular rate and rhythm. No loud murmur ABDOMEN: Soft, no tenderness , guarding or rigidity, no organomegaly EXTREMITIES: Bilateral lower extremity swelling redness did have some pustules to the left lower extremity and maceration SKIN: No rash, no masses palpable. NEUROLOGICAL: The patient is awake, alert, oriented x3, mood and affect normal. Results CBC & Chem 7: 11/30/23 06:17 12/01/23 00:14 Labs: Abnormal Lab Results - Last 24 Hours (Table) 11/29/23 11/29/23 11/29/23 Range/Units 17:36 17:36 17:36 RBC 3.68 L (4.30-5.90) m/uL Hgb 10.6 L (13.0-17.5) gm/dL Hct 34.6 L (39.0-53.0) % MCHC 30.8 L (31.0-37.0) g/dL RDW 15.8 H (11.5-15.5) % Neutrophils # (1.3-7.7) k/uL Lymphocytes # 0.6 L (1.0-4.8) k/uL VBG pH 7.29 L (7.31-7.41) VBG HCO3 18 L (24-28) mmol/L Potassium 6.8 H* (3.5-5.1) mmol/L Carbon Dioxide 12 L (22-30) mmol/L BUN 91 H (9-20) mg/dL Creatinine 8.38 H* (0.66-1.25) mg/dL Glucose 243 H (74-99) mg/dL POC Glucose (mg/dL) (70-110) mg/dL Calcium 7.7 L (8.4-10.2) mg/dL Phosphorus (2.5-4.5) mg/dL Alkaline Phosphatase 906 H (38-126) U/L Total Protein (6.3-8.2) g/dL 11/29/23 11/29/23 11/29/23 Range/Units 20:24 21:30 21:56 RBC (4.30-5.90) m/uL Hgb (13.0-17.5) gm/dL Hct (39.0-53.0) % MCHC (31.0-37.0) g/dL RDW (11.5-15.5) % Neutrophils # (1.3-7.7) k/uL Lymphocytes # (1.0-4.8) k/uL VBG pH (7.31-7.41) VBG HCO3 (24-28) mmol/L Potassium 5.6 H (3.5-5.1) mmol/L Carbon Dioxide 10 L (22-30) mmol/L BUN 92 H (9-20) mg/dL Creatinine 8.75 H* (0.66-1.25) mg/dL Glucose 333 H (74-99) mg/dL POC Glucose (mg/dL) 289 H 279 H (70-110) mg/dL Calcium (8.4-10.2) mg/dL Phosphorus 8.4 H (2.5-4.5) mg/dL Alkaline Phosphatase (38-126) U/L Total Protein (6.3-8.2) g/dL 11/29/23 11/30/23 11/30/23 Range/Units 23:08 00:42 00:58 RBC (4.30-5.90) m/uL Hgb (13.0-17.5) gm/dL Hct (39.0-53.0) % MCHC (31.0-37.0) g/dL RDW (11.5-15.5) % Neutrophils # (1.3-7.7) k/uL Lymphocytes # (1.0-4.8) k/uL VBG pH (7.31-7.41) VBG HCO3 (24-28) mmol/L Potassium (3.5-5.1) mmol/L Carbon Dioxide (22-30) mmol/L BUN (9-20) mg/dL Creatinine (0.66-1.25) mg/dL Glucose (74-99) mg/dL POC Glucose (mg/dL) 140 H 43 L* 58 L (70-110) mg/dL Calcium (8.4-10.2) mg/dL Phosphorus (2.5-4.5) mg/dL Alkaline Phosphatase (38-126) U/L Total Protein (6.3-8.2) g/dL 11/30/23 11/30/23 11/30/23 Range/Units 01:17 01:17 02:05 RBC (4.30-5.90) m/uL Hgb (13.0-17.5) gm/dL Hct (39.0-53.0) % MCHC (31.0-37.0) g/dL RDW (11.5-15.5) % Neutrophils # (1.3-7.7) k/uL Lymphocytes # (1.0-4.8) k/uL VBG pH (7.31-7.41) VBG HCO3 (24-28) mmol/L Potassium 5.4 H 5.3 H (3.5-5.1) mmol/L Carbon Dioxide 14 L 15 L (22-30) mmol/L BUN 97 H 98 H (9-20) mg/dL Creatinine 8.45 H* 8.71 H* (0.66-1.25) mg/dL Glucose 103 H (74-99) mg/dL POC Glucose (mg/dL) 160 H (70-110) mg/dL Calcium 8.0 L (8.4-10.2) mg/dL Phosphorus 8.0 H 7.9 H (2.5-4.5) mg/dL Alkaline Phosphatase 772 H (38-126) U/L Total Protein 8.5 H (6.3-8.2) g/dL 11/30/23 11/30/23 11/30/23 Range/Units 03:20 04:08 05:21 RBC (4.30-5.90) m/uL Hgb (13.0-17.5) gm/dL Hct (39.0-53.0) % MCHC (31.0-37.0) g/dL RDW (11.5-15.5) % Neutrophils # (1.3-7.7) k/uL Lymphocytes # (1.0-4.8) k/uL VBG pH (7.31-7.41) VBG HCO3 (24-28) mmol/L Potassium (3.5-5.1) mmol/L Carbon Dioxide (22-30) mmol/L BUN (9-20) mg/dL Creatinine (0.66-1.25) mg/dL Glucose (74-99) mg/dL POC Glucose (mg/dL) 203 H 242 H 282 H (70-110) mg/dL Calcium (8.4-10.2) mg/dL Phosphorus (2.5-4.5) mg/dL Alkaline Phosphatase (38-126) U/L Total Protein (6.3-8.2) g/dL 11/30/23 11/30/23 11/30/23 Range/Units 06:07 06:17 06:17 RBC 3.23 L (4.30-5.90) m/uL Hgb 9.2 L (13.0-17.5) gm/dL Hct 29.4 L (39.0-53.0) % MCHC (31.0-37.0) g/dL RDW 16.0 H (11.5-15.5) % Neutrophils # 7.9 H (1.3-7.7) k/uL Lymphocytes # 0.8 L (1.0-4.8) k/uL VBG pH (7.31-7.41) VBG HCO3 (24-28) mmol/L Potassium 5.9 H (3.5-5.1) mmol/L Carbon Dioxide 17 L (22-30) mmol/L BUN 105 H* (9-20) mg/dL Creatinine 9.17 H* (0.66-1.25) mg/dL Glucose 188 H (74-99) mg/dL POC Glucose (mg/dL) 277 H (70-110) mg/dL Calcium (8.4-10.2) mg/dL Phosphorus 8.8 H (2.5-4.5) mg/dL Alkaline Phosphatase (38-126) U/L Total Protein (6.3-8.2) g/dL 11/30/23 11/30/23 11/30/23 Range/Units 06:55 07:55 10:20 RBC (4.30-5.90) m/uL Hgb (13.0-17.5) gm/dL Hct (39.0-53.0) % MCHC (31.0-37.0) g/dL RDW (11.5-15.5) % Neutrophils # (1.3-7.7) k/uL Lymphocytes # (1.0-4.8) k/uL VBG pH (7.31-7.41) VBG HCO3 (24-28) mmol/L Potassium (3.5-5.1) mmol/L Carbon Dioxide (22-30) mmol/L BUN (9-20) mg/dL Creatinine (0.66-1.25) mg/dL Glucose (74-99) mg/dL POC Glucose (mg/dL) 233 H 168 H 69 L (70-110) mg/dL Calcium (8.4-10.2) mg/dL Phosphorus (2.5-4.5) mg/dL Alkaline Phosphatase (38-126) U/L Total Protein (6.3-8.2) g/dL Assessment and Plan (1) Bilateral leg ulcer Current Visit: Yes Status: Acute Code(s): L97.919 - NON-PRS CHRONIC ULC UNSP PRT OF R LOW LEG W UNSP SEVERITY; L97.929 - NON-PRS CHRONIC ULC UNSP PRT OF L LOW LEG W UNSP SEVERITY SNOMED Code(s): 23545579 (2) Allergy to multiple antibiotics Current Visit: Yes Status: Acute Code(s): Z88.1 - ALLERGY STATUS TO OTHER ANTIBIOTIC AGENTS SNOMED Code(s): 260467998 (3) Bilateral lower leg cellulitis Current Visit: Yes Status: Acute Code(s): L03.116 - CELLULITIS OF LEFT LOWER LIMB; L03.115 - CELLULITIS OF RIGHT LOWER LIMB SNOMED Code(s): 994935882 Plan: 1patient presented to hospital with bilateral lower extremity weeping edema ulceration and concerning for cellulitis likely a venous stasis and did have some pustules to the left lower extremity and a chronic ulceration likely from gram-positive skin melquiades. 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 3local wound care with the dry Aquacel silver dressing to the ulceration followed by Tim wrap from just above the toe to below the knee. 4vancomycin pharmacy to dose while waiting for the culture to finalize. Mother at the bedside questions were answered. We will follow on clinical condition and cultures to further adjust medication if needed Thank you for this consultation we will follow the patient along with you Dictation was produced using [employer] dictation software. please excuse any grammatical, word or spelling errors. Time with Patient: Greater than 30
[2023-12-01 09:04] LABS: African American GFR (CKD) 13 (>60 ml/min/1.73 sqM); Anion Gap 13 mmol/L; Carbon Dioxide 26 mmol/L (22-30); Chloride 96 mmol/L (98-107); Non-African American GFR(CKD) 11 (>60 ml/min/1.73 sqM); Potassium 4.9 mmol/L (3.5-5.1); Sodium 135 mmol/L (137-145)
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
[2023-12-01 11:35] LABS: Glucose,Whole Blood 74 mg/dL (70-110)
[2023-12-01] MEDS: DEXTROSE 50% SYRINGE 50 ML IVP STA (12:09)
--- NOTE | 2023-12-01 12:55 | P.PN ---
Subjective Patient is seen in follow-up for end-stage renal disease. He is maintained on hemodialysis on Thursday schedule. No problems with dialysis yesterday. No active complaints. Vital signs are stable. General: No acute distress. HEENT: Head exam is unremarkable. LUNGS: No audible rhonchi or wheezes. HEART: Rate and Rhythm are regular. ABDOMEN: Nontender. EXTREMITITES: Chronic lower extremity wounds noted. Weeping noted. Objective - Vital Signs Vital signs: Vital Signs Temp 97.3 F L 12/01/23 08:10 Pulse 76 12/01/23 08:10 Resp 17 12/01/23 08:10 BP 143/63 12/01/23 08:10 Pulse Ox 100 12/01/23 08:10 FiO2 Intake & Output 11/30/23 12/01/23 12/01/23 18:59 06:59 18:59 Intake Total 1099.768 9583 Output Total 500 2700 Balance 587.749 -1540 Weight 88.2 kg 86.5 kg Intake: Intake, IV Titration 7.749 Amount Insulin Regular 100 unit 7.749 In Sodium Chloride 0.9% 100 ml @ 0.1 UNITS/KG/HR 7.788 mls/hr IV .[id number] [facility] Rx#:[id number] Oral 1080 960 Hemodialysis 200 Output: Emesis 500 Hemodialysis 2700 Other: # Voids 0 # Bowel Movements 0 - Labs CBC & Chem 7: 11/30/23 06:17 12/01/23 08:21 Labs: Abnormal Lab Results - Last 24 Hours (Table) 11/30/23 11/30/23 11/30/23 Range/Units 11:42 14:01 15:30 Sodium (137-145) mmol/L Potassium 5.5 H (3.5-5.1) mmol/L Chloride 96 L (98-107) mmol/L Carbon Dioxide 17 L (22-30) mmol/L Creatinine (0.66-1.25) mg/dL Glucose 251 H (74-99) mg/dL POC Glucose (mg/dL) 253 H (70-110) mg/dL Iron 37 L (65-175) UG/DL TIBC 185 L (228-460) UG/DL Transferrin 132.0 L (204.0-354.0) mg/dL Ferritin 3065.0 H (22.0-322.0) ng/mL 11/30/23 11/30/23 11/30/23 Range/Units 17:07 20:04 20:10 Sodium 136 L (137-145) mmol/L Potassium (3.5-5.1) mmol/L Chloride 95 L (98-107) mmol/L Carbon Dioxide 20 L (22-30) mmol/L Creatinine (0.66-1.25) mg/dL Glucose (74-99) mg/dL POC Glucose (mg/dL) 285 H 174 H (70-110) mg/dL Iron (65-175) UG/DL TIBC (228-460) UG/DL Transferrin (204.0-354.0) mg/dL Ferritin (22.0-322.0) ng/mL 12/01/23 12/01/23 12/01/23 Range/Units 00:14 02:06 04:22 Sodium (137-145) mmol/L Potassium (3.5-5.1) mmol/L Chloride 97 L (98-107) mmol/L Carbon Dioxide (22-30) mmol/L Creatinine (0.66-1.25) mg/dL Glucose (74-99) mg/dL POC Glucose (mg/dL) 122 H 48 L* (70-110) mg/dL Iron (65-175) UG/DL TIBC (228-460) UG/DL Transferrin (204.0-354.0) mg/dL Ferritin (22.0-322.0) ng/mL 12/01/23 12/01/23 12/01/23 Range/Units 04:44 05:06 05:40 Sodium (137-145) mmol/L Potassium (3.5-5.1) mmol/L Chloride (98-107) mmol/L Carbon Dioxide (22-30) mmol/L Creatinine (0.66-1.25) mg/dL Glucose (74-99) mg/dL POC Glucose (mg/dL) 54 L 66 L 112 H (70-110) mg/dL Iron (65-175) UG/DL TIBC (228-460) UG/DL Transferrin (204.0-354.0) mg/dL Ferritin (22.0-322.0) ng/mL 12/01/23 Range/Units 08:21 Sodium 135 L (137-145) mmol/L Potassium (3.5-5.1) mmol/L Chloride 96 L (98-107) mmol/L Carbon Dioxide (22-30) mmol/L Creatinine 5.78 H (0.66-1.25) mg/dL Glucose (74-99) mg/dL POC Glucose (mg/dL) (70-110) mg/dL Iron (65-175) UG/DL TIBC (228-460) UG/DL Transferrin (204.0-354.0) mg/dL Ferritin (22.0-322.0) ng/mL Microbiology - Last 24 Hours (Table) 11/29/23 22:36 Gram Stain - Preliminary Leg - Right Wound Culture - Preliminary Pseudomonas aeruginosa Klebsiella pneumoniae 11/29/23 19:00 Blood Culture - Preliminary Blood 11/29/23 19:15 Blood Culture - Preliminary Blood Assessment and Plan Plan: Assessment: 1. End-stage renal disease maintained on hemodialysis on Thursday schedule. 2. DKA status post insulin drip. 3. Hyperkalemia secondary to chronic kidney disease, hypertonicity. Improved. 4. Metabolic acidosis secondary to DKA and chronic kidney disease. Improved. 5. Anemia of chronic kidney disease. High ferritin noted. 6. Chronic kidney disease mineral bone disease maintained on PhosLo. 7. Hypertension with chronic kidney disease. Controlled. 8. Lower extremity wounds. On antibiotics. On antibiotics. ID following. Plan: Hemodialysis tomorrow. Hold hydralazine for systolic blood pressure less than 120. Losartan and amlodipine discontinued. Tight blood sugar control. Add Aranesp. Monitor vancomycin levels. Dose to be tested for renal function.
--- NOTE | 2023-12-01 15:34 | P.PN ---
Subjective Progress Note Date: 12/01/23 Principal diagnosis: Reason for follow-up is bilateral lower extremity venous stasis ulcer and cellulitis Patient is a 38-year-old male with a past medical history significant for diabetes mellitus hypertension patient did have a end-stage renal disease on dialysis also with bilateral lower extremity venous stasis ulcer admitted to hospital with worsening swelling and drainage concerning for cellulitis. On today's evaluation that is 12/01/2023,the patient remains to be afebrile, patient is on room air not requiring supplemental oxygen and denies any worsening shortness of breath no chest pain or cough.Patient denies having any nausea or vomiting, no abdominal pain and no diarrhea and denies any worsening pain to the lower extremity drainage slightly decreased. Patient creatinine is 5.78 Vanco random is 25.2 cultures currently growing Pseudomonas and Klebsiella Objective - Vital Signs Vital signs: Vital Signs Temp 97.3 F L 12/01/23 08:10 Pulse 76 12/01/23 08:10 Resp 17 12/01/23 08:10 BP 143/63 12/01/23 08:10 Pulse Ox 100 12/01/23 08:10 FiO2 Intake & Output 11/30/23 12/01/23 12/01/23 18:59 06:59 18:59 Intake Total 9468.243 6492 Output Total 500 2700 Balance 587.749 -1540 Weight 88.2 kg 86.5 kg Intake: Intake, IV Titration 7.749 Amount Insulin Regular 100 unit 7.749 In Sodium Chloride 0.9% 100 ml @ 0.1 UNITS/KG/HR 7.788 mls/hr IV .[id number] [facility] Rx#:[id number] Oral 1080 960 Hemodialysis 200 Output: Emesis 500 Hemodialysis 2700 Other: # Voids 0 # Bowel Movements 0 - Exam GENERAL DESCRIPTION: Middle-age male up in bed in no distress RESPIRATORY SYSTEM: Unlabored breathing , decreased breath sounds at bases HEART: S1 S2 regular rate and rhythm , ABDOMEN: Soft , no tenderness EXTREMITIES: Bilateral lower extremity diffuse swelling and weeping edema and drainage - Labs CBC & Chem 7: 11/30/23 06:17 12/01/23 08:21 Labs: Abnormal Lab Results - Last 24 Hours (Table) 11/30/23 11/30/23 11/30/23 Range/Units 11:42 15:30 17:07 Sodium (137-145) mmol/L Potassium 5.5 H (3.5-5.1) mmol/L Chloride 96 L (98-107) mmol/L Carbon Dioxide 17 L (22-30) mmol/L Creatinine (0.66-1.25) mg/dL Glucose 251 H (74-99) mg/dL POC Glucose (mg/dL) 285 H (70-110) mg/dL Iron 37 L (65-175) UG/DL TIBC 185 L (228-460) UG/DL Transferrin 132.0 L (204.0-354.0) mg/dL Ferritin 3065.0 H (22.0-322.0) ng/mL 11/30/23 11/30/23 12/01/23 Range/Units 20:04 20:10 00:14 Sodium 136 L (137-145) mmol/L Potassium (3.5-5.1) mmol/L Chloride 95 L 97 L (98-107) mmol/L Carbon Dioxide 20 L (22-30) mmol/L Creatinine (0.66-1.25) mg/dL Glucose (74-99) mg/dL POC Glucose (mg/dL) 174 H (70-110) mg/dL Iron (65-175) UG/DL TIBC (228-460) UG/DL Transferrin (204.0-354.0) mg/dL Ferritin (22.0-322.0) ng/mL 12/01/23 12/01/23 12/01/23 Range/Units 02:06 04:22 04:44 Sodium (137-145) mmol/L Potassium (3.5-5.1) mmol/L Chloride (98-107) mmol/L Carbon Dioxide (22-30) mmol/L Creatinine (0.66-1.25) mg/dL Glucose (74-99) mg/dL POC Glucose (mg/dL) 122 H 48 L* 54 L (70-110) mg/dL Iron (65-175) UG/DL TIBC (228-460) UG/DL Transferrin (204.0-354.0) mg/dL Ferritin (22.0-322.0) ng/mL 12/01/23 12/01/23 12/01/23 Range/Units 05:06 05:40 08:21 Sodium 135 L (137-145) mmol/L Potassium (3.5-5.1) mmol/L Chloride 96 L (98-107) mmol/L Carbon Dioxide (22-30) mmol/L Creatinine 5.78 H (0.66-1.25) mg/dL Glucose (74-99) mg/dL POC Glucose (mg/dL) 66 L 112 H (70-110) mg/dL Iron (65-175) UG/DL TIBC (228-460) UG/DL Transferrin (204.0-354.0) mg/dL Ferritin (22.0-322.0) ng/mL Microbiology - Last 24 Hours (Table) 11/29/23 22:36 Gram Stain - Preliminary Leg - Right Wound Culture - Preliminary Pseudomonas aeruginosa Klebsiella pneumoniae 11/29/23 19:00 Blood Culture - Preliminary Blood 11/29/23 19:15 Blood Culture - Preliminary Blood Assessment and Plan (1) Bilateral leg ulcer Current Visit: Yes Status: Acute Code(s): L97.919 - NON-PRS CHRONIC ULC UNSP PRT OF R LOW LEG W UNSP SEVERITY; L97.929 - NON-PRS CHRONIC ULC UNSP PRT OF L LOW LEG W UNSP SEVERITY SNOMED Code(s): 29872816 (2) Allergy to multiple antibiotics Current Visit: Yes Status: Acute Code(s): Z88.1 - ALLERGY STATUS TO OTHER ANTIBIOTIC AGENTS SNOMED Code(s): 747415441 (3) Bilateral lower leg cellulitis Current Visit: Yes Status: Acute Code(s): L03.116 - CELLULITIS OF LEFT LOWER LIMB; L03.115 - CELLULITIS OF RIGHT LOWER LIMB SNOMED Code(s): 237901090 Plan: 1patient presented to hospital with bilateral lower extremity weeping edema ulceration and concerning for cellulitis likely a venous stasis and did have so me pustules to the left lower extremity and a chronic ulceration likely from gram-positive skin melquiades. 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 3local wound care with the dry Aquacel silver dressing to the ulceration followed by Tim wrap from just above the toe to below the knee. 4local culture now growing Klebsiella and Pseudomonas we will add cefepime pending sensitivity Dictation was produced using Scrybeation software. please excuse any grammatical, word or spelling errors. Time with Patient: Less than 30
--- NOTE | 2023-12-01 15:46 | P.PN ---
Subjective Progress Note Date: 12/01/23 38-year-old gentleman with past medical significant for end-stage renal disease on dialysis, diabetes mellitus presented to ER because of feeling of generalized weakness and bodyaches. Patient stated that he was all right a few days ago and started noticing that he was getting weak and he was having generalized body aches. Patient also complaining of abdominal pain. Patient was complaining of nausea and vomiting. Patient stated that he went to his dialysis session on Thursday but the session was cut short as he was not tolerating it and his blood pressure was low. Patient was also complaining of bilateral shoulder pains. There was no complaint of fever or chills. Patient states that he was compliant with his insulin regimen. Patient also is complaining of swelling of lower extremities and has noticed increased warmth and redness of lower extremities, patient also notes increased discharge. Because of the symptoms, patient went to the ER Initial lab work done in the ER showed WBC 8.8, hemoglobin 10.6, platelet count 247, sodium 137, potassium 6.8, BUN 91, creatinine 8.38 glucose is 243 lactate of 7.7 acetone is positive Influenza A not detected Influenza B not detected RSV not detected COVID-19 not detected EKG done in the ER showed heart rate of 94, no ST segment elevation or dep ression seen, no T-wave inversions seen. Chest x-ray done in the ER showed low lung volumes with generalized hazy appearance which could represent atelectasis 11/30 -patient seen at bedside today. Patient states he is feeling slightly better today than yesterday, however after dialysis he always feels worn down and he had dialysis on 11/29. Patient's mother was at the bedside with him, answered all of her questions appropriately. Infectious diseases consulted and is following the patient. Nephrology has been consulted and is following the patient, patient will receive hemodialysis again tomorrow on 12/01. REVIEW OF SYSTEMS: CONSTITUTIONAL: No fever, no malaise. CARDIOVASCULAR: No chest pain, no palpitations, no syncope. PULMONARY: No shortness of breath, no cough, GASTROINTESTINAL: As stated above NEUROLOGICAL: No headaches, no weakness, PHYSICAL EXAMINATION: GENERAL: The patient is alert and oriented x3, not in any acute distress. Chronically ill in appearance. HEENT: Pupils are round and equally reacting to light. EOMI. No scleral icterus. No conjunctival pallor. Normocephalic, atraumatic. No pharyngeal erythema. No thyromegaly. CARDIOVASCULAR: S1 and S2 present. No murmurs, rubs, or gallops. PULMONARY: Chest is clear to auscultation, no wheezing or crackles. ABDOMEN: Soft, nontender, nondistended, normoactive bowel sounds. No palpable organomegaly. MUSCULOSKELETAL: No joint swelling or deformity. EXTREMITIES: No cyanosis, or clubbing. Pedal edema present NEUROLOGICAL: Gross neurological examination did not reveal any focal deficits. SKIN: Bilateral lower extremity wounds seen Assessment and plan 1. DKA Was controlled with an insulin drip, which the patient is now off of Levemir switch to 15 units subcu at bedtime Continue NovoLog SQ ACHS 2. Hyperkalemia secondary to chronic kidney disease Improved 3. Cellulitis of bilateral lower extremities No deep tissue wounds to culture Lower extremities dressed in Kerlix and Tim wraps Continue with recommendations from infectious disease 4. Chronic lower extremity wounds On antibiotics Infectious disease following 5. End-stage renal disease on dialysis Dialysis on Thursday, Thursday, Thursday. Hemodialysis tomorrow Bone mineral density maintained by [facility] 6. Insulin-dependent diabetes mellitus Currently on 15 units of Levemir at bedtime and NovoLog High blood sugar control 7. Hypertension with chronic kidney disease Hold losartan and amlodipine Decrease dose of hydralazine to 50 mg 3 times daily, hold if systolic blood pressure below 120 8. Anemia of chronic kidney disease Ferritin noted to be elevated Hgb on arrival was 10.6, on 11/29 was 9.2, will follow-up with routine CBCs starting 12/01 Monitor CBC Aranesp has been added Monitor vital signs Monitor CBC Monitor BMP Labs and medication were reviewed. Continue with symptomatic treatment. Resume home medication. Monitor labs and vitals. DVT and GI prophylaxis. Further recommendations as per clinical course of the patient Dictation was produced using [employer] dictation software. please excuse any grammatical, word or spelling errors. I saw and evaluated the patient, agree with above-mentioned plan. Objective - Vital Signs Vital signs: Vital Signs Temp 97.3 F L 12/01/23 08:10 Pulse 76 12/01/23 08:10 Resp 17 12/01/23 08:10 BP 143/63 12/01/23 08:10 Pulse Ox 100 12/01/23 08:10 FiO2 Intake & Output 11/30/23 12/01/23 12/01/23 18:59 06:59 18:59 Intake Total 8493.239 3709 Output Total 500 2700 Balance 587.749 -1540 Weight 88.2 kg 86.5 kg Intake: Intake, IV Titration 7.749 Amount Insulin Regular 100 unit 7.749 In Sodium Chloride 0.9% 100 ml @ 0.1 UNITS/KG/HR 7.788 mls/hr IV .[id number] [facility] Rx#:[id number] Oral 1080 960 Hemodialysis 200 Output: Emesis 500 Hemodialysis 2700 Other: # Voids 0 # Bowel Movements 0 - Labs CBC & Chem 7: 11/30/23 06:17 12/01/23 08:21 Labs: Abnormal Lab Results - Last 24 Hours (Table) 11/30/23 11/30/23 11/30/23 Range/Units 11:42 15:30 17:07 Sodium (137-145) mmol/L Potassium 5.5 H (3.5-5.1) mmol/L Chloride 96 L (98-107) mmol/L Carbon Dioxide 17 L (22-30) mmol/L Creatinine (0.66-1.25) mg/dL Glucose 251 H (74-99) mg/dL POC Glucose (mg/dL) 285 H (70-110) mg/dL Iron 37 L (65-175) UG/DL TIBC 185 L (228-460) UG/DL Transferrin 132.0 L (204.0-354.0) mg/dL Ferritin 3065.0 H (22.0-322.0) ng/mL 11/30/23 11/30/23 12/01/23 Range/Units 20:04 20:10 00:14 Sodium 136 L (137-145) mmol/L Potassium (3.5-5.1) mmol/L Chloride 95 L 97 L (98-107) mmol/L Carbon Dioxide 20 L (22-30) mmol/L Creatinine (0.66-1.25) mg/dL Glucose (74-99) mg/dL POC Glucose (mg/dL) 174 H (70-110) mg/dL Iron (65-175) UG/DL TIBC (228-460) UG/DL Transferrin (204.0-354.0) mg/dL Ferritin (22.0-322.0) ng/mL 12/01/23 12/01/23 12/01/23 Range/Units 02:06 04:22 04:44 Sodium (137-145) mmol/L Potassium (3.5-5.1) mmol/L Chloride (98-107) mmol/L Carbon Dioxide (22-30) mmol/L Creatinine (0.66-1.25) mg/dL Glucose (74-99) mg/dL POC Glucose (mg/dL) 122 H 48 L* 54 L (70-110) mg/dL Iron (65-175) UG/DL TIBC (228-460) UG/DL Transferrin (204.0-354.0) mg/dL Ferritin (22.0-322.0) ng/mL 12/01/23 12/01/23 12/01/23 Range/Units 05:06 05:40 08:21 Sodium 135 L (137-145) mmol/L Potassium (3.5-5.1) mmol/L Chloride 96 L (98-107) mmol/L Carbon Dioxide (22-30) mmol/L Creatinine 5.78 H (0.66-1.25) mg/dL Glucose (74-99) mg/dL POC Glucose (mg/dL) 66 L 112 H (70-110) mg/dL Iron (65-175) UG/DL TIBC (228-460) UG/DL Transferrin (204.0-354.0) mg/dL Ferritin (22.0-322.0) ng/mL Microbiology - Last 24 Hours (Table) 11/29/23 22:36 Gram Stain - Preliminary Leg - Right Wound Culture - Preliminary Pseudomonas aeruginosa Klebsiella pneumoniae 11/29/23 19:00 Blood Culture - Preliminary Blood 11/29/23 19:15 Blood Culture - Preliminary Blood
[2023-12-01 16:46] LABS: Glucose,Whole Blood 265 mg/dL (70-110)
[2023-12-01] MEDS: CEFEPIME 2 GM in SODIUM CHLORIDE 0.9% 100 ML IVPB STA (17:10)
[2023-12-01] MEDS: DARBEPOETIN ALFA 40 MCG/0.4 ML SYRINGE SQ SCH (17:10)
[2023-12-01] MEDS: HYDROPHILIC CREAM 180 GM TUBE TOPICAL SCH (17:11)
[2023-12-01 20:00] LABS: Glucose,Whole Blood 299 mg/dL (70-110)
[2023-12-01] MEDS: INSULIN DETEMIR (LEVEMIR) 100 UNIT/ML SYR SQ SCH (21:58)
[2023-12-01] MEDS: CEFEPIME 1 GM in SODIUM CHLORIDE 0.9% 50 ML IVPB SCH (22:36)
[2023-12-02] MEDS: HYDROmorphone 0.5 MG/0.5 ML SYRINGE IVP PRN (00:35)
[2023-12-02 06:15] LABS: Glucose,Whole Blood 115 mg/dL (70-110)
--- NOTE | 2023-12-02 11:00 | P.PN ---
Subjective Patient is seen in follow-up for end-stage renal disease. He is maintained on hemodialysis on Thursday schedule. Scheduled for dialysis today. Wants to go home. Vital signs are stable. General: No acute distress. HEENT: Head exam is unremarkable. LUNGS: No audible rhonchi or wheezes. HEART: Rate and Rhythm are regular. ABDOMEN: Nontender. EXTREMITITES: Chronic lower extremity wounds noted. Wrapped. Objective - Vital Signs Vital signs: Vital Signs Temp 97.5 F L 12/02/23 09:57 Pulse 86 12/02/23 09:57 Resp 18 12/02/23 09:57 BP 132/60 12/02/23 09:57 Pulse Ox 100 12/02/23 09:57 FiO2 Intake & Output 12/01/23 12/02/23 12/02/23 18:59 06:59 18:59 Intake Total 480 240 20 Output Total 0 Balance 480 240 20 Weight 85.9 kg Intake: IV 20 Invasive Line 1 10 Invasive Line 4 10 Oral 480 240 Output: Urine 0 - Labs CBC & Chem 7: 11/30/23 06:17 12/01/23 08:21 Labs: Abnormal Lab Results - Last 24 Hours (Table) 12/01/23 12/01/23 12/02/23 Range/Units 16:35 19:55 05:49 POC Glucose (mg/dL) 265 H 299 H 115 H (70-110) mg/dL Microbiology - Last 24 Hours (Table) 11/29/23 22:36 Gram Stain - Preliminary Leg - Right Wound Culture - Preliminary Pseudomonas aeruginosa Klebsiella pneumoniae 11/29/23 19:00 Blood Culture - Preliminary Blood 11/29/23 19:15 Blood Culture - Preliminary Blood Assessment and Plan Plan: Assessment: 1. End-stage renal disease maintained on hemodialysis on Thursday schedule. 2. DKA status post insulin drip. 3. Hyperkalemia secondary to chronic kidney disease, hypertonicity. Improved. 4. Metabolic acidosis secondary to DKA and chronic kidney disease. Improved. 5. Anemia of chronic kidney disease. High ferritin noted. On Aranesp. 6. Chronic kidney disease mineral bone disease maintained on PhosLo. 7. Hypertension with chronic kidney disease. Controlled. 8. Lower extremity wounds. On antibiotics. ID following. Plan: Hemodialysis today. Hold hydralazine for systolic blood pressure less than 120. Losartan and amlodipine discontinued. Tight blood sugar control. Monitor vancomycin levels. Dose to be tested for renal function.
[2023-12-02 11:11] LABS: Basophils % (A) 1 %; Eosinophils # (A) 0.4 k/uL (0-0.7); Eosinophils % (A) 5 %; HCT 31.4 % (39.0-53.0); HGB 9.6 gm/dL (13.0-17.5); Hypochromasia Slight; Lymphocytes # (A) 0.7 k/uL (1.0-4.8); Lymphocytes % (A) 9 %; MCH 28.8 pg (25.0-35.0); MCHC 30.6 g/dL (31.0-37.0); MCV 94.2 fL (80.0-100.0); Mean Platelet Volume 9.4; Monocytes # (A) 0.9 k/uL (0-1.0); Monocytes % (A) 12 %; Neutrophils # (A) 5.3 k/uL (1.3-7.7); Neutrophils % (A) 70 %; Platelet Count 253 k/uL (150-450); RBC 3.33 m/uL (4.30-5.90); RDW 15.5 % (11.5-15.5); WBC 7.6 k/uL (3.8-10.6)
--- NOTE | 2023-12-02 11:46 | P.PN ---
Subjective Progress Note Date: 12/02/23 38-year-old gentleman with past medical significant for end-stage renal disease on dialysis, diabetes mellitus presented to ER because of feeling of generalized weakness and bodyaches. Patient stated that he was all right a few days ago and started noticing that he was getting weak and he was having generalized body aches. Patient also complaining of abdominal pain. Patient was complaining of nausea and vomiting. Patient stated that he went to his dialysis session on Thursday but the session was cut short as he was not tolerating it and his blood pressure was low. Patient was also complaining of bilateral shoulder pains. There was no complaint of fever or chills. Patient states that he was compliant with his insulin regimen. Patient also is complaining of swelling of lower extremities and has noticed increased warmth and redness of lower extremities, patient also notes increased discharge. Because of the symptoms, patient went to the ER Initial lab work done in the ER showed WBC 8.8, hemoglobin 10.6, platelet count 247, sodium 137, potassium 6.8, BUN 91, creatinine 8.38 glucose is 243 lactate of 7.7 acetone is positive Influenza A not detected Influenza B not detected RSV not detected COVID-19 not detected EKG done in the ER showed heart rate of 94, no ST segment elevation or dep ression seen, no T-wave inversions seen. Chest x-ray done in the ER showed low lung volumes with generalized hazy appearance which could represent atelectasis 11/30 -patient seen at bedside today. Patient states he is feeling slightly better today than yesterday, however after dialysis he always feels worn down and he had dialysis on 11/29. Patient's mother was at the bedside with him, answered all of her questions appropriately. Infectious diseases consulted and is following the patient. Nephrology has been consulted and is following the patient, patient will receive hemodialysis again tomorrow on 12/01. 12/01 -patient seen at bedside today. He states he is feeling better today than yesterday, has been tolerating diet well, and been able to go to the bathroom regularly. Patient's glucose at 5:59 AM on 12/01 was 115, per nurses report patient received 5 units of NovoLog at 9 PM on 11/30 and 15 units of Levemir at 10:40 PM on 11/30. Lower extremity wounds continue to be weepy, cultures grew Pseudomonas and Klebsiella for which infectious disease added cefepime. Patient has hemodialysis scheduled for later today. He inquired about the possibility of discharge and has no current complaints. Awaiting infectious disease determination of a PICC line as needed for IV antibiotics or if it will be done via his dialysis. REVIEW OF SYSTEMS: CONSTITUTIONAL: No fever, no malaise. CARDIOVASCULAR: No chest pain, no palpitations, no syncope. PULMONARY: No shortness of breath, no cough, GASTROINTESTINAL: As stated above NEUROLOGICAL: No headaches, no weakness, PHYSICAL EXAMINATION: GENERAL: The patient is alert and oriented x3, not in any acute distress. Chronically ill in appearance. HEENT: Pupils are round and equally reacting to light. EOMI. No scleral icterus. No conjunctival pallor. Normocephalic, atraumatic. No pharyngeal erythema. No thyromegaly. CARDIOVASCULAR: S1 and S2 present. No murmurs, rubs, or gallops. PULMONARY: Chest is clear to auscultation, no wheezing or crackles. ABDOMEN: Soft, nontender, nondistended, normoactive bowel sounds. No palpable organomegaly. MUSCULOSKELETAL: No joint swelling or deformity. EXTREMITIES: No cyanosis, or clubbing. Pedal edema present NEUROLOGICAL: Gross neurological examination did not reveal any focal deficits. SKIN: Bilateral lower extremity wounds seen Assessment and plan 1. DKA Was controlled with an insulin drip, which the patient is now off of Levemir switch to 15 units subcu at bedtime Continue NovoLog SQ ACHS 2. Hyperkalemia secondary to chronic kidney disease Improved 3. Cellulitis of bilateral lower extremities No deep tissue wounds to culture Lower extremities dressed in Kerlix and Tim wraps Continue with recommendations from infectious disease 4. Chronic lower extremity wounds On antibiotics Infectious disease following 5. End-stage renal disease on dialysis Dialysis on Thursday, Thursday, Thursday. Hemodialysis tomorrow Bone mineral density maintained by [facility] 6. Insulin-dependent diabetes mellitus Currently on 15 units of Levemir at bedtime and NovoLog High blood sugar control 7. Hypertension with chronic kidney disease Hold losartan and amlodipine Decrease dose of hydralazine to 50 mg 3 times daily, hold if systolic blood pressure below 120 8. Anemia of chronic kidney disease Ferritin noted to be elevated Hgb on arrival was 10.6, on 11/29 was 9.2, will follow-up with routine CBCs starting 12/01 Monitor CBC Aranesp has been added Monitor vital signs Monitor CBC Monitor BMP Labs and medication were reviewed. Continue with symptomatic treatment. Resume home medication. Monitor labs and vitals. DVT and GI prophylaxis. Further recommendations as per clinical course of the patient Dictation was produced using [employer] dictation software. please excuse any grammatical, word or spelling errors. Objective - Vital Signs Vital signs: Vital Signs Temp 97.7 F 12/02/23 03:34 Pulse 88 12/02/23 03:34 Resp 18 12/02/23 03:34 BP 134/62 12/02/23 03:34 Pulse Ox 99 12/02/23 03:34 FiO2 Intake & Output 12/01/23 12/02/23 12/02/23 18:59 06:59 18:59 Intake Total 480 240 Output Total 0 Balance 480 240 Weight 85.9 kg Intake: Oral 480 240 Output: Urine 0 - Labs CBC & Chem 7: 12/02/23 08:48 12/01/23 08:21 Labs: Abnormal Lab Results - Last 24 Hours (Table) 12/01/23 12/01/23 12/01/23 Range/Units 08:21 16:35 19:55 Sodium 135 L (137-145) mmol/L Chloride 96 L (98-107) mmol/L Creatinine 5.78 H (0.66-1.25) mg/dL POC Glucose (mg/dL) 265 H 299 H (70-110) mg/dL 12/02/23 Range/Units 05:49 Sodium (137-145) mmol/L Chloride (98-107) mmol/L Creatinine (0.66-1.25) mg/dL POC Glucose (mg/dL) 115 H (70-110) mg/dL Microbiology - Last 24 Hours (Table) 11/29/23 19:00 Blood Culture - Preliminary Blood 11/29/23 19:15 Blood Culture - Preliminary Blood 11/29/23 22:36 Gram Stain - Preliminary Leg - Right Wound Culture - Preliminary Pseudomonas aeruginosa Klebsiella pneumoniae
[2023-12-02 11:53] LABS: Glucose,Whole Blood 116 mg/dL (70-110)
[2023-12-02 12:24] LABS: African American GFR (CKD) 10 (>60 ml/min/1.73 sqM); Anion Gap 15 mmol/L; Blood Urea Nitrogen 76 mg/dL (9-20); Calcium 7.2 mg/dL (8.4-10.2); Carbon Dioxide 22 mmol/L (22-30); Chloride 96 mmol/L (98-107); Glucose 125 mg/dL (74-99); Non-African American GFR(CKD) 8 (>60 ml/min/1.73 sqM); Potassium 5.9 mmol/L (3.5-5.1); Sodium 133 mmol/L (137-145)
[2023-12-02] MEDS: CEFEPIME 1 GM in SODIUM CHLORIDE 0.9% 50 ML IVPB SCH (16:16)
[2023-12-02 16:28] LABS: Glucose,Whole Blood 308 mg/dL (70-110)
[2023-12-02 20:10] LABS: Glucose,Whole Blood 328 mg/dL (70-110)
[2023-12-02] MEDS: VANCOMYCIN 1,250 MG in SODIUM CHLORIDE 0.9% 250 ML IVPB ONE (20:29)
[2023-12-03 06:13] LABS: Glucose,Whole Blood 448 mg/dL (70-110)
[2023-12-03 07:17] LABS: Glucose,Whole Blood 452 mg/dL (70-110)
[2023-12-03 07:53] LABS: Basophils # (A) 0.1 k/uL (0-0.2); Basophils % (A) 1 %; Eosinophils # (A) 0.2 k/uL (0-0.7); Eosinophils % (A) 5 %; HCT 32.1 % (39.0-53.0); HGB 9.2 gm/dL (13.0-17.5); Hypochromasia Marked; Lymphocytes # (A) 0.5 k/uL (1.0-4.8); Lymphocytes % (A) 10 %; MCH 28.5 pg (25.0-35.0); MCHC 28.7 g/dL (31.0-37.0); MCV 99.1 fL (80.0-100.0); Macrocytosis Slight; Mean Platelet Volume 8.1; Monocytes # (A) 0.4 k/uL (0-1.0); Monocytes % (A) 8 %; Neutrophils # (A) 3.9 k/uL (1.3-7.7); Neutrophils % (A) 74 %; Platelet Count 229 k/uL (150-450); RBC 3.24 m/uL (4.30-5.90); RDW 15.2 % (11.5-15.5); WBC 5.3 k/uL (3.8-10.6)
[2023-12-03 07:58] LABS: Glucose,Whole Blood 427 mg/dL (70-110)
--- NOTE | 2023-12-03 08:12 | P.PN ---
Subjective Progress Note Date: 12/02/23 Principal diagnosis: Reason for follow-up is bilateral lower extremity venous stasis ulcer and cellulitis Patient is a 38-year-old male with a past medical history significant for diabetes mellitus hypertension patient did have a end-stage renal disease on dialysis also with bilateral lower extremity venous stasis ulcer admitted to hospital with worsening swelling and drainage concerning for cellulitis. On today's evaluation that is 12/02/2023, the patient continues to be afebrile, the patient is on room air and breathing comfortably, the Pt denies having any chest pain or cough, the patient denies having any abdominal pain no vomiting or any diarrhea , denies any worsening pain to bilateral lower extremity. Patient white count is 7.6 creatinine 7 point manage local culture growing Pseudomonas that is resistant to oral Cipro also growing Klebsiella with sen sitivities pending Objective - Vital Signs Vital signs: Vital Signs Temp 97.3 F L 12/02/23 12:38 Pulse 93 12/02/23 12:38 Resp 18 12/02/23 12:38 BP 111/37 12/02/23 12:38 Pulse Ox 100 12/02/23 12:38 FiO2 Intake & Output 12/01/23 12/02/23 12/02/23 18:59 06:59 18:59 Intake Total 480 240 140 Output Total 0 Balance 480 240 140 Weight 85.9 kg Intake: IV 20 Invasive Line 1 10 Invasive Line 4 10 Oral 480 240 120 Output: Urine 0 - Exam GENERAL DESCRIPTION: Middle-age male up in bed in no distress RESPIRATORY SYSTEM: Unlabored breathing , decreased breath sounds at bases HEART: S1 S2 regular rate and rhythm , ABDOMEN: Soft , no tenderness EXTREMITIES: Bilateral lower extremity diffuse swelling and weeping edema and drainage - Labs CBC & Chem 7: 12/03/23 07:14 12/02/23 Unknown Labs: Abnormal Lab Results - Last 24 Hours (Table) 12/01/23 12/01/23 12/02/23 Range/Units 16:35 19:55 05:49 RBC (4.30-5.90) m/uL Hgb (13.0-17.5) gm/dL Hct (39.0-53.0) % MCHC (31.0-37.0) g/dL Lymphocytes # (1.0-4.8) k/uL Sodium (137-145) mmol/L Potassium (3.5-5.1) mmol/L Chloride (98-107) mmol/L BUN (9-20) mg/dL Creatinine (0.66-1.25) mg/dL Glucose (74-99) mg/dL POC Glucose (mg/dL) 265 H 299 H 115 H (70-110) mg/dL Calcium (8.4-10.2) mg/dL 12/02/23 12/02/23 12/02/23 Range/Units 08:48 11:50 Unknown RBC 3.33 L (4.30-5.90) m/uL Hgb 9.6 L (13.0-17.5) gm/dL Hct 31.4 L (39.0-53.0) % MCHC 30.6 L (31.0-37.0) g/dL Lymphocytes # 0.7 L (1.0-4.8) k/uL Sodium 133 L (137-145) mmol/L Potassium 5.9 H (3.5-5.1) mmol/L Chloride 96 L (98-107) mmol/L BUN 76 H (9-20) mg/dL Creatinine 7.48 H* (0.66-1.25) mg/dL Glucose 125 H (74-99) mg/dL POC Glucose (mg/dL) 116 H (70-110) mg/dL Calcium 7.2 L (8.4-10.2) mg/dL Microbiology - Last 24 Hours (Table) 11/29/23 22:36 Gram Stain - Preliminary Leg - Right Wound Culture - Preliminary Pseudomonas aeruginosa Klebsiella pneumoniae 11/29/23 19:00 Blood Culture - Preliminary Blood 11/29/23 19:15 Blood Culture - Preliminary Blood Assessment and Plan (1) Bilateral leg ulcer Current Visit: Yes Status: Acute Code(s): L97.919 - NON-PRS CHRONIC ULC UNSP PRT OF R LOW LEG W UNSP SEVERITY; L97.929 - NON-PRS CHRONIC ULC UNSP PRT OF L LOW LEG W UNSP SEVERITY SNOMED Code(s): 31966258 (2) Allergy to multiple antibiotics Current Visit: Yes Status: Acute Code(s): Z88.1 - ALLERGY STATUS TO OTHER ANTIBIOTIC AGENTS SNOMED Code(s): 293210518 (3) Bilateral lower leg cellulitis Current Visit: Yes Status: Acute Code(s): L03.116 - CELLULITIS OF LEFT LOWER LIMB; L03.115 - CELLULITIS OF RIGHT LOWER LIMB SNOMED Code(s): 207185926 Plan: 1patient presented to hospital with bilateral lower extremity weeping edema ulceration and concerning for cellulitis likely a venous stasis and did have some pustules to the left lower extremity and a chronic ulceration likely from gram-positive skin melquiades. 2patient has been evaluated by vascular surgery and did have some bedside debridement and did not recommend any further workup 3local wound care with the dry Aquacel silver dressing to the ulceration followed by Tim wrap from just above the toe to below the knee. 4local culture now growing Klebsiella and Pseudomonas. Continue cefepime may be able to get cefepime through the dialysis pending sensitivity on Klebsiella this was discussed with the [employer] for admitting team Dictation was produced using [employer] dictation software. please excuse any grammatical, word or spelling errors. Time with Patient: Less than 30
[2023-12-03 08:24] LABS: African American GFR (CKD) 15 (>60 ml/min/1.73 sqM); Anion Gap 20 mmol/L; Blood Urea Nitrogen 47 mg/dL (9-20); Calcium 7.7 mg/dL (8.4-10.2); Carbon Dioxide 16 mmol/L (22-30); Chloride 96 mmol/L (98-107); Glucose 486 mg/dL (74-99); Non-African American GFR(CKD) 13 (>60 ml/min/1.73 sqM); Sodium 132 mmol/L (137-145)
[2023-12-03 10:08] LABS: Glucose,Whole Blood 228 mg/dL (70-110)
[2023-12-03] MEDS: metroNIDAZOLE 500 MG TAB PO SCH (10:10)
[2023-12-03] MEDS: INSULIN ASPART (NovoLOG) 100 UNIT/ML VIAL SQ ONE (10:55)
[2023-12-03 10:56] LABS: Glucose,Whole Blood 172 mg/dL (70-110)
--- NOTE | 2023-12-03 11:47 | P.PN ---
Subjective Patient is seen in follow-up for end-stage renal disease. He is maintained on hemodialysis on Thursday schedule. Tolerated 2 L ultrafiltration yesterday. No active complaints. Vital signs are stable. General: No acute distress. HEENT: Head exam is unremarkable. LUNGS: No audible rhonchi or wheezes. HEART: Rate and Rhythm are regular. ABDOMEN: Nontender. EXTREMITITES: Chronic lower extremity wounds noted. Wrapped. Objective - Vital Signs Vital signs: Vital Signs Temp 98.1 F 12/03/23 10:57 Pulse 93 12/03/23 10:57 Resp 16 12/03/23 10:57 BP 181/79 12/03/23 10:57 Pulse Ox 99 12/03/23 10:57 FiO2 Intake & Output 12/02/23 12/03/23 12/03/23 18:59 06:59 18:59 Intake Total 698 128 Output Total 2300 Balance -1602 128 Weight 86 kg Intake: IV 20 10 Invasive Line 1 10 Invasive Line 4 10 10 Oral 478 118 Hemodialysis 200 Output: Hemodialysis 2300 Other: # Voids 0 0 # Bowel Movements 1 - Labs CBC & Chem 7: 12/03/23 07:14 12/03/23 07:14 Labs: Abnormal Lab Results - Last 24 Hours (Table) 12/02/23 12/02/23 12/02/23 Range/Units 11:50 16:22 20:07 RBC (4.30-5.90) m/uL Hgb (13.0-17.5) gm/dL Hct (39.0-53.0) % MCHC (31.0-37.0) g/dL Lymphocytes # (1.0-4.8) k/uL Sodium (137-145) mmol/L Potassium (3.5-5.1) mmol/L Chloride (98-107) mmol/L Carbon Dioxide (22-30) mmol/L BUN (9-20) mg/dL Creatinine (0.66-1.25) mg/dL Glucose (74-99) mg/dL POC Glucose (mg/dL) 116 H 308 H 328 H (70-110) mg/dL Calcium (8.4-10.2) mg/dL 12/02/23 12/03/23 12/03/23 Range/Units Unknown 06:12 07:14 RBC 3.24 L (4.30-5.90) m/uL Hgb 9.2 L (13.0-17.5) gm/dL Hct 32.1 L (39.0-53.0) % MCHC 28.7 L (31.0-37.0) g/dL Lymphocytes # 0.5 L (1.0-4.8) k/uL Sodium 133 L (137-145) mmol/L Potassium 5.9 H (3.5-5.1) mmol/L Chloride 96 L (98-107) mmol/L Carbon Dioxide (22-30) mmol/L BUN 76 H (9-20) mg/dL Creatinine 7.48 H* (0.66-1.25) mg/dL Glucose 125 H (74-99) mg/dL POC Glucose (mg/dL) 448 H (70-110) mg/dL Calcium 7.2 L (8.4-10.2) mg/dL 12/03/23 12/03/23 12/03/23 Range/Units 07:14 07:15 07:56 RBC (4.30-5.90) m/uL Hgb (13.0-17.5) gm/dL Hct (39.0-53.0) % MCHC (31.0-37.0) g/dL Lymphocytes # (1.0-4.8) k/uL Sodium 132 L (137-145) mmol/L Potassium (3.5-5.1) mmol/L Chloride 96 L (98-107) mmol/L Carbon Dioxide 16 L (22-30) mmol/L BUN 47 H (9-20) mg/dL Creatinine 5.19 H (0.66-1.25) mg/dL Glucose 486 H (74-99) mg/dL POC Glucose (mg/dL) 452 H 427 H (70-110) mg/dL Calcium 7.7 L (8.4-10.2) mg/dL 12/03/23 12/03/23 Range/Units 10:06 10:54 RBC (4.30-5.90) m/uL Hgb (13.0-17.5) gm/dL Hct (39.0-53.0) % MCHC (31.0-37.0) g/dL Lymphocytes # (1.0-4.8) k/uL Sodium (137-145) mmol/L Potassium (3.5-5.1) mmol/L Chloride (98-107) mmol/L Carbon Dioxide (22-30) mmol/L BUN (9-20) mg/dL Creatinine (0.66-1.25) mg/dL Glucose (74-99) mg/dL POC Glucose (mg/dL) 228 H 172 H (70-110) mg/dL Calcium (8.4-10.2) mg/dL Microbiology - Last 24 Hours (Table) 11/29/23 22:36 Gram Stain - Final Leg - Right Wound Culture - Final Pseudomonas aeruginosa Klebsiella pneumoniae 11/29/23 19:00 Blood Culture - Preliminary Blood 11/29/23 19:15 Blood Culture - Preliminary Blood 11/29/23 22:36 Anaerobic Culture - Preliminary Leg - Right Bacteroides fragilis Assessment and Plan Plan: Assessment: 1. End-stage renal disease maintained on hemodialysis on Thursday schedule. 2. DKA status post insulin drip. Blood sugar remains elevated. 3. Hyperkalemia secondary to chronic kidney disease, hypertonicity. Improved. 4. Metabolic acidosis secondary to DKA and chronic kidney disease. 5. Anemia of chronic kidney disease. High ferritin noted. On Aranesp. 6. Chronic kidney disease mineral bone disease maintained on PhosLo. Phosphorus level 8.8 dated November 30, 2023. 7. Hypertension with chronic kidney disease. Patient refuses to take Coreg and hydralazine according to the nurse at times. 8. Lower extremity wounds. On antibiotics. ID following. Plan: Hemodialysis tomorrow. Hold hydralazine for systolic blood pressure less than 120. Losartan and amlodipine discontinued. Tight blood sugar control. Monitor vancomycin levels. Dose to be tested for renal function. Increased dose of PhosLo.
[2023-12-03 11:58] LABS: Glucose,Whole Blood 166 mg/dL (70-110)
[2023-12-03] MEDS: diphenhydrAMINE 25 MG CAP PO STA (12:07)
[2023-12-03] MEDS: CALCIUM ACETATE 667 MG TAB PO SCH (12:08)
--- NOTE | 2023-12-03 12:27 | P.PN ---
Subjective Progress Note Date: 12/03/23 Principal diagnosis: Reason for follow-up is bilateral lower extremity venous stasis ulcer and cellulitis Patient is a 38-year-old male with a past medical history significant for diabetes mellitus hypertension patient did have a end-stage renal disease on dialysis also with bilateral lower extremity venous stasis ulcer admitted to hospital with worsening swelling and drainage concerning for cellulitis. On today's evaluation that is 12/03/2023, Patient is afebrile patient is currently on 2 L nasal cannula oxygen and denies having any shortness of breath, the patient denies any chest pain or cough, the patient denies any nausea vomiting did not have any abdominal pain and no diarrhea overall swelling drainage to the lower extremity has decreased intensity feeling slightly better. Patient did have white count 5.3 creatinine is 5.19 he is growing Pseudomonas E SBL Klebsiella and bacteroids in the culture Objective - Vital Signs Vital signs: Vital Signs Temp 98.1 F 12/03/23 10:57 Pulse 93 12/03/23 10:57 Resp 16 12/03/23 10:57 BP 150/95 12/03/23 12:11 Pulse Ox 99 12/03/23 10:57 FiO2 Intake & Output 12/02/23 12/03/23 12/03/23 18:59 06:59 18:59 Intake Total 698 128 Output Total 2300 Balance -1602 128 Weight 86 kg Intake: IV 20 10 Invasive Line 1 10 Invasive Line 4 10 10 Oral 478 118 Hemodialysis 200 Output: Hemodialysis 2300 Other: # Voids 0 0 # Bowel Movements 1 - Exam GENERAL DESCRIPTION: Middle-age male up in bed in no distress RESPIRATORY SYSTEM: Unlabored breathing , decreased breath sounds at bases HEART: S1 S2 regular rate and rhythm , ABDOMEN: Soft , no tenderness EXTREMITIES: Bilateral lower extremity diffuse swelling and weeping edema and drainage - Labs CBC & Chem 7: 12/03/23 07:14 12/03/23 07:14 Labs: Abnormal Lab Results - Last 24 Hours (Table) 12/02/23 12/02/23 12/02/23 Range/Units 16:22 20:07 Unknown RBC (4.30-5.90) m/uL Hgb (13.0-17.5) gm/dL Hct (39.0-53.0) % MCHC (31.0-37.0) g/dL Lymphocytes # (1.0-4.8) k/uL Sodium 133 L (137-145) mmol/L Potassium 5.9 H (3.5-5.1) mmol/L Chloride 96 L (98-107) mmol/L Carbon Dioxide (22-30) mmol/L BUN 76 H (9-20) mg/dL Creatinine 7.48 H* (0.66-1.25) mg/dL Glucose 125 H (74-99) mg/dL POC Glucose (mg/dL) 308 H 328 H (70-110) mg/dL Calcium 7.2 L (8.4-10.2) mg/dL 12/03/23 12/03/23 12/03/23 Range/Units 06:12 07:14 07:14 RBC 3.24 L (4.30-5.90) m/uL Hgb 9.2 L (13.0-17.5) gm/dL Hct 32.1 L (39.0-53.0) % MCHC 28.7 L (31.0-37.0) g/dL Lymphocytes # 0.5 L (1.0-4.8) k/uL Sodium 132 L (137-145) mmol/L Potassium (3.5-5.1) mmol/L Chloride 96 L (98-107) mmol/L Carbon Dioxide 16 L (22-30) mmol/L BUN 47 H (9-20) mg/dL Creatinine 5.19 H (0.66-1.25) mg/dL Glucose 486 H (74-99) mg/dL POC Glucose (mg/dL) 448 H (70-110) mg/dL Calcium 7.7 L (8.4-10.2) mg/dL 12/03/23 12/03/23 12/03/23 Range/Units 07:15 07:56 10:06 RBC (4.30-5.90) m/uL Hgb (13.0-17.5) gm/dL Hct (39.0-53.0) % MCHC (31.0-37.0) g/dL Lymphocytes # (1.0-4.8) k/uL Sodium (137-145) mmol/L Potassium (3.5-5.1) mmol/L Chloride (98-107) mmol/L Carbon Dioxide (22-30) mmol/L BUN (9-20) mg/dL Creatinine (0.66-1.25) mg/dL Glucose (74-99) mg/dL POC Glucose (mg/dL) 452 H 427 H 228 H (70-110) mg/dL Calcium (8.4-10.2) mg/dL 12/03/23 12/03/23 Range/Units 10:54 11:56 RBC (4.30-5.90) m/uL Hgb (13.0-17.5) gm/dL Hct (39.0-53.0) % MCHC (31.0-37.0) g/dL Lymphocytes # (1.0-4.8) k/uL Sodium (137-145) mmol/L Potassium (3.5-5.1) mmol/L Chloride (98-107) mmol/L Carbon Dioxide (22-30) mmol/L BUN (9-20) mg/dL Creatinine (0.66-1.25) mg/dL Glucose (74-99) mg/dL POC Glucose (mg/dL) 172 H 166 H (70-110) mg/dL Calcium (8.4-10.2) mg/dL Microbiology - Last 24 Hours (Table) 11/29/23 22:36 Gram Stain - Final Leg - Right Wound Culture - Final Pseudomonas aeruginosa Klebsiella pneumoniae 11/29/23 19:00 Blood Culture - Preliminary Blood 11/29/23 19:15 Blood Culture - Preliminary Blood 11/29/23 22:36 Anaerobic Culture - Preliminary Leg - Right Bacteroides fragilis Assessment and Plan (1) Bilateral leg ulcer Current Visit: Yes Status: Acute Code(s): L97.919 - NON-PRS CHRONIC ULC UNSP PRT OF R LOW LEG W UNSP SEVERITY; L97.929 - NON-PRS CHRONIC ULC UNSP PRT OF L LOW LEG W UNSP SEVERITY SNOMED Code(s): 04593830 (2) Allergy to multiple antibiotics Current Visit: Yes Status: Acute Code(s): Z88.1 - ALLERGY STATUS TO OTHER ANTIBIOTIC AGENTS SNOMED Code(s): 802627971 (3) Bilateral lower leg cellulitis Current Visit: Yes Status: Acute Code(s): L03.116 - CELLULITIS OF LEFT LOWER LIMB; L03.115 - CELLULITIS OF RIGHT LOWER LIMB SNOMED Code(s): 719678306 Plan: 1patient presented to hospital with bilateral lower extremity weeping edema ulceration and concerning for cellulitis likely a venous stasis and did have some pustules to the left lower extremity and a chronic ulceration likely from gram-positive skin melquiades. 2patient has been evaluated by vascular surgery and did have some bedside debridement and did not recommend any further workup 3local wound care with the dry Aquacel silver dressing to the ulceration followed by Tim wrap from just above the toe to below the knee. 4local culture now growing ESBL Klebsiella, Pseudomonas and Bacteroides we will discontinue cefepime and start the patient on meropenem 500 mg daily trying to find a dose if meropenem can be dosed with the dialysis so we can avoid placement of midline and give the meropenem with the dialysis if not he will need a midline and a 2-week course of meropenem on discharge awaiting response from pharmacy Dictation was produced using [email or web address] dictation software. please excuse any grammatical, word or spelling errors. Time with Patient: Less than 30
--- NOTE | 2023-12-03 12:55 | P.PN ---
Subjective Progress Note Date: 12/03/23 38-year-old gentleman with past medical significant for end-stage renal disease on dialysis, diabetes mellitus presented to ER because of feeling of generalized weakness and bodyaches. Patient stated that he was all right a few days ago and started noticing that he was getting weak and he was having generalized body aches. Patient also complaining of abdominal pain. Patient was complaining of nausea and vomiting. Patient stated that he went to his dialysis session on Thursday but the session was cut short as he was not tolerating it and his blood pressure was low. Patient was also complaining of bilateral shoulder pains. There was no complaint of fever or chills. Patient states that he was compliant with his insulin regimen. Patient also is complaining of swelling of lower extremities and has noticed increased warmth and redness of lower extremities, patient also notes increased discharge. Because of the symptoms, patient went to the ER Initial lab work done in the ER showed WBC 8.8, hemoglobin 10.6, platelet count 247, sodium 137, potassium 6.8, BUN 91, creatinine 8.38 glucose is 243 lactate of 7.7 acetone is positive Influenza A not detected Influenza B not detected RSV not detected COVID-19 not detected EKG done in the ER showed heart rate of 94, no ST segment elevation or dep ression seen, no T-wave inversions seen. Chest x-ray done in the ER showed low lung volumes with generalized hazy appearance which could represent atelectasis 11/30 -patient seen at bedside today. Patient states he is feeling slightly better today than yesterday, however after dialysis he always feels worn down and he had dialysis on 11/29. Patient's mother was at the bedside with him, answered all of her questions appropriately. Infectious diseases consulted and is following the patient. Nephrology has been consulted and is following the patient, patient will receive hemodialysis again tomorrow on 12/01. 12/01 -patient seen at bedside today. He states he is feeling better today than yesterday, has been tolerating diet well, and been able to go to the bathroom regularly. Patient's glucose at 5:59 AM on 12/01 was 115, per nurses report patient received 5 units of NovoLog at 9 PM on 11/30 and 15 units of Levemir at 10:40 PM on 11/30. Lower extremity wounds continue to be weepy, cultures grew Pseudomonas and Klebsiella for which infectious disease added cefepime. Patient has hemodialysis scheduled for later today. He inquired about the possibility of discharge and has no current complaints. Awaiting infectious disease determination of a PICC line as needed for IV antibiotics or if it will be done via his dialysis. 12/02 - Patient seen at bedside today. Patient states he is feeling better today than he was yesterday, on appearance he looks better than he has the past couple of days, he was sitting in the chair today rather than lying/sitting in his bed. States he has been tolerating his diet well and able to go to the bathroom regularly. Patient's only present concern is his glucose control, first thing this morning at 6 AM his glucose was 448, he was given 24 units of NovoLog, his glucose was taken again at 7:56 AM and was still 427. Per infectious disease, with the cultures growing Klebsiella, Pseudomonas and Bacteroides, per infectious disease patient will discontinue cefepime and start meropenem 500 mg daily. Discussed with the patient his desire/the possibility of discharge today pending the determination of whether his antibiotics can be taken via his dialysis or if it would have to be done through the placement of a new midline. REVIEW OF SYSTEMS: CONSTITUTIONAL: No fever, no malaise. CARDIOVASCULAR: No chest pain, no palpitations, no syncope. PULMONARY: No shortness of breath, no cough, GASTROINTESTINAL: As stated above NEUROLOGICAL: No headaches, no weakness, PHYSICAL EXAMINATION: GENERAL: The patient is alert and oriented x3, not in any acute distress. Chronically ill in appearance. HEENT: Pupils are round and equally reacting to light. EOMI. No scleral icterus. No conjunctival pallor. Normocephalic, atraumatic. No pharyngeal erythema. No thyromegaly. CARDIOVASCULAR: S1 and S2 present. No murmurs, rubs, or gallops. PULMONARY: Chest is clear to auscultation, no wheezing or crackles. ABDOMEN: Soft, nontender, nondistended, normoactive bowel sounds. No palpable organomegaly. MUSCULOSKELETAL: No joint swelling or deformity. EXTREMITIES: No cyanosis, or clubbing. Pedal edema present NEUROLOGICAL: Gross neurological examination did not reveal any focal deficits. SKIN: Bilateral lower extremity wounds seen Assessment and plan 1. DKA Was controlled with an insulin drip, which the patient is now off of Levemir switch to 15 units subcu at bedtime Continue NovoLog SQ ACHS 2. Hyperkalemia secondary to chronic kidney disease Improved 3. Cellulitis of bilateral lower extremities No deep tissue wounds to culture Lower extremities dressed in Kerlix and Tim wraps Cultures grew ESBL Klebsiella, Pseudomonas and Bacteroides infectious disease put him on cefepime per infectious disease. Patient will discontinue cefepime and be started on 500 mg daily of meropenem per infectious disease Infectious disease attempting to determine if meropenem can be dosed with dialysis to avoid the placement of midline Continue with recommendations from infectious disease 4. Chronic lower extremity wounds On antibiotics Infectious disease following 5. End-stage renal disease on dialysis Dialysis on Thursday, Thursday, Thursday. Hemodialysis tomorrow Bone mineral density maintained by Jesse 6. Insulin-dependent diabetes mellitus Currently on 15 units of Levemir at bedtime and NovoLog High blood sugar control 7. Hypertension with chronic kidney disease Hold losartan and amlodipine Decrease dose of hydralazine to 50 mg 3 times daily, hold if systolic blood pressure below 120 8. Anemia of chronic kidney disease Ferritin noted to be elevated Hgb on arrival was 10.6, on 11/29 was 9.2, will follow-up with routine CBCs starting 12/01 Monitor CBC Aranesp has been added Monitor vital signs Monitor CBC Monitor BMP Labs and medication were reviewed. Continue with symptomatic treatment. Resume home medication. Monitor labs and vitals. DVT and GI prophylaxis. Further recommendations as per clinical course of the patient Dictation was produced using [employer] dictation software. please excuse any grammatical, word or spelling errors. Objective - Vital Signs Vital signs: Vital Signs Temp 98.2 F 12/03/23 07:58 Pulse 107 H 12/03/23 07:58 Resp 16 12/03/23 07:58 BP 160/74 12/03/23 07:58 Pulse Ox 99 12/03/23 07:58 FiO2 Intake & Output 12/02/23 12/03/23 12/03/23 18:59 06:59 18:59 Intake Total 698 128 Output Total 2300 Balance -1602 128 Weight 86 kg Intake: IV 20 10 Invasive Line 1 10 Invasive Line 4 10 10 Oral 478 118 Hemodialysis 200 Output: Hemodialysis 2300 Other: # Voids 0 0 - Labs CBC & Chem 7: 12/03/23 07:14 07/18/24 07:14 Labs: Abnormal Lab Results - Last 24 Hours (Table) 12/02/23 12/02/23 12/02/23 Range/Units 08:48 11:50 16:22 RBC 3.33 L (4.30-5.90) m/uL Hgb 9.6 L (13.0-17.5) gm/dL Hct 31.4 L (39.0-53.0) % MCHC 30.6 L (31.0-37.0) g/dL Lymphocytes # 0.7 L (1.0-4.8) k/uL Sodium (137-145) mmol/L Potassium (3.5-5.1) mmol/L Chloride (98-107) mmol/L Carbon Dioxide (22-30) mmol/L BUN (9-20) mg/dL Creatinine (0.66-1.25) mg/dL Glucose (74-99) mg/dL POC Glucose (mg/dL) 116 H 308 H (70-110) mg/dL Calcium (8.4-10.2) mg/dL 12/02/23 12/02/23 12/03/23 Range/Units 20:07 Unknown 06:12 RBC (4.30-5.90) m/uL Hgb (13.0-17.5) gm/dL Hct (39.0-53.0) % MCHC (31.0-37.0) g/dL Lymphocytes # (1.0-4.8) k/uL Sodium 133 L (137-145) mmol/L Potassium 5.9 H (3.5-5.1) mmol/L Chloride 96 L (98-107) mmol/L Carbon Dioxide (22-30) mmol/L BUN 76 H (9-20) mg/dL Creatinine 7.48 H* (0.66-1.25) mg/dL Glucose 125 H (74-99) mg/dL POC Glucose (mg/dL) 328 H 448 H (70-110) mg/dL Calcium 7.2 L (8.4-10.2) mg/dL 12/03/23 12/03/23 12/03/23 Range/Units 07:14 07:14 07:15 RBC 3.24 L (4.30-5.90) m/uL Hgb 9.2 L (13.0-17.5) gm/dL Hct 32.1 L (39.0-53.0) % MCHC 28.7 L (31.0-37.0) g/dL Lymphocytes # 0.5 L (1.0-4.8) k/uL Sodium 132 L (137-145) mmol/L Potassium (3.5-5.1) mmol/L Chloride 96 L (98-107) mmol/L Carbon Dioxide 16 L (22-30) mmol/L BUN 47 H (9-20) mg/dL Creatinine 5.19 H (0.66-1.25) mg/dL Glucose 486 H (74-99) mg/dL POC Glucose (mg/dL) 452 H (70-110) mg/dL Calcium 7.7 L (8.4-10.2) mg/dL 12/03/23 Range/Units 07:56 RBC (4.30-5.90) m/uL Hgb (13.0-17.5) gm/dL Hct (39.0-53.0) % MCHC (31.0-37.0) g/dL Lymphocytes # (1.0-4.8) k/uL Sodium (137-145) mmol/L Potassium (3.5-5.1) mmol/L Chloride (98-107) mmol/L Carbon Dioxide (22-30) mmol/L BUN (9-20) mg/dL Creatinine (0.66-1.25) mg/dL Glucose (74-99) mg/dL POC Glucose (mg/dL) 427 H (70-110) mg/dL Calcium (8.4-10.2) mg/dL Microbiology - Last 24 Hours (Table) 11/29/23 22:36 Gram Stain - Final Leg - Right Wound Culture - Final Pseudomonas aeruginosa Klebsiella pneumoniae 11/29/23 19:00 Blood Culture - Preliminary Blood 11/29/23 19:15 Blood Culture - Preliminary Blood 11/29/23 22:36 Anaerobic Culture - Preliminary Leg - Right Bacteroides fragilis
[2023-12-03] MEDS: MEROPENEM 500 MG in SODIUM CHLORIDE 0.9% 100 ML IVPB SCH (13:04)
[2023-12-03 16:40] LABS: Glucose,Whole Blood 205 mg/dL (70-110)
[2023-12-03 20:22] LABS: Glucose,Whole Blood 189 mg/dL (70-110)
[2023-12-04 05:16] LABS: Glucose,Whole Blood 85 mg/dL (70-110)
[2023-12-04 07:35] LABS: Basophils # (A) 0.1 k/uL (0-0.2); Basophils % (A) 1 %; Eosinophils # (A) 0.4 k/uL (0-0.7); Eosinophils % (A) 6 %; HCT 29.8 % (39.0-53.0); Hypochromasia Marked; Lymphocytes # (A) 0.8 k/uL (1.0-4.8); Lymphocytes % (A) 12 %; MCHC 30.3 g/dL (31.0-37.0); Mean Platelet Volume 7.2; Monocytes # (A) 0.8 k/uL (0-1.0); Monocytes % (A) 11 %; Neutrophils # (A) 4.5 k/uL (1.3-7.7); Neutrophils % (A) 67 %; Platelet Count 289 k/uL (150-450); RBC 3.23 m/uL (4.30-5.90); RDW 15.8 % (11.5-15.5); WBC 6.7 k/uL (3.8-10.6)
[2023-12-04 07:49] LABS: MCV 92.3 fL (80.0-100.0)
[2023-12-04 09:09] LABS: African American GFR (CKD) 11 (>60 ml/min/1.73 sqM); Anion Gap 14 mmol/L; Blood Urea Nitrogen 65 mg/dL (9-20); Carbon Dioxide 23 mmol/L (22-30); Chloride 99 mmol/L (98-107); Glucose 74 mg/dL (74-99); Non-African American GFR(CKD) 10 (>60 ml/min/1.73 sqM); Potassium 5.5 mmol/L (3.5-5.1); Sodium 136 mmol/L (137-145)
--- NOTE | 2023-12-04 11:05 | P.PN ---
Subjective Patient is seen in follow-up for end-stage renal disease. He is maintained on hemodialysis on Thursday schedule. midline being placed today. Dialysis today. Vital signs are stable. General: No acute distress. HEENT: Head exam is unremarkable. LUNGS: No audible rhonchi or wheezes. HEART: Rate and Rhythm are regular. ABDOMEN: Nontender. EXTREMITITES: Chronic lower extremity wounds noted. Wrapped. Objective - Vital Signs Vital signs: Vital Signs Temp 97.6 F 12/04/23 08:10 Pulse 86 12/04/23 08:10 Resp 18 12/04/23 08:10 BP 126/58 12/04/23 08:10 Pulse Ox 99 12/04/23 09:21 FiO2 Intake & Output 12/03/23 12/04/23 12/04/23 18:59 06:59 18:59 Intake Total 498 790 120 Output Total 1000 0 Balance -502 790 120 Weight 87.5 kg Intake: IV 20 10 Invasive Line 4 20 10 Oral 478 780 120 Output: Urine 0 Emesis 1000 Other: # Voids 0 # Bowel Movements 1 - Labs CBC & Chem 7: 12/04/23 06:49 12/04/23 06:49 Labs: Abnormal Lab Results - Last 24 Hours (Table) 12/03/23 12/03/23 12/03/23 Range/Units 11:56 16:39 20:18 RBC (4.30-5.90) m/uL Hgb (13.0-17.5) gm/dL Hct (39.0-53.0) % MCHC (31.0-37.0) g/dL RDW (11.5-15.5) % Lymphocytes # (1.0-4.8) k/uL Sodium (137-145) mmol/L Potassium (3.5-5.1) mmol/L BUN (9-20) mg/dL Creatinine (0.66-1.25) mg/dL POC Glucose (mg/dL) 166 H 205 H 189 H (70-110) mg/dL Calcium (8.4-10.2) mg/dL 12/04/23 12/04/23 Range/Units 06:49 06:49 RBC 3.23 L (4.30-5.90) m/uL Hgb 9.0 L (13.0-17.5) gm/dL Hct 29.8 L (39.0-53.0) % MCHC 30.3 L (31.0-37.0) g/dL RDW 15.8 H (11.5-15.5) % Lymphocytes # 0.8 L (1.0-4.8) k/uL Sodium 136 L (137-145) mmol/L Potassium 5.5 H (3.5-5.1) mmol/L BUN 65 H (9-20) mg/dL Creatinine 6.75 H (0.66-1.25) mg/dL POC Glucose (mg/dL) (70-110) mg/dL Calcium 8.0 L (8.4-10.2) mg/dL Microbiology - Last 24 Hours (Table) 11/29/23 22:36 Gram Stain - Final Leg - Right Wound Culture - Final Pseudomonas aeruginosa Klebsiella pneumoniae Assessment and Plan Plan: Assessment: 1. End-stage renal disease maintained on hemodialysis on Thursday schedule. 2. DKA status post insulin drip. Blood sugar remains elevated. 3. Hyperkalemia secondary to chronic kidney disease, hypertonicity. 4. Metabolic acidosis secondary to DKA and chronic kidney disease. improved. 5. Anemia of chronic kidney disease. High ferritin noted. On Aranesp. 6. Chronic kidney disease mineral bone disease maintained on PhosLo. Phosphorus level 8.8 dated November 30, 2023. dose of PhosLo increased. 7. Hypertension with chronic kidney disease. Patient refuses to take Coreg and hydralazine according to the nurse at times. 8. Lower extremity wounds. On antibiotics. ID following. Plan: Hemodialysis today. Hold hydralazine for systolic blood pressure less than 120. Losartan and amlodipine discontinued. Tight blood sugar control. Monitor vancomycin levels. Dose to be tested for renal function.
[2023-12-04 11:54] LABS: Glucose,Whole Blood 298 mg/dL (70-110)
--- NOTE | 2023-12-04 14:24 | P.DS ---
Providers Date of admission: 11/29/23 19:45 Attending physician: Jordyn Wang Consults: 11/29/23 18:44 Consult Physician Routine Consulting Provider: Chuy Gibson Consult Reason/Comments: Hyperkalemia, dialysis Do you want consulting provider notified?: Already Contacted 11/29/23 18:52 Consult Physician Routine Consulting Provider: Connie Lind Consult Reason/Comments: cellulitis Do you want consulting provider notified?: Yes Primary care physician: Stated None Hospital Course: Discharge diagnoses; 1. DKA Was controlled with an insulin drip, which the patient is now off of Levemir switch to 15 units subcu at bedtime Continue NovoLog SQ ACHS 2. Hyperkalemia secondary to chronic kidney disease Improved 3. Cellulitis of bilateral lower extremities No deep tissue wounds to culture Lower extremities dressed in Kerlix and Tim wraps Cultures grew ESBL Klebsiella, Pseudomonas and Bacteroides infectious disease put him on cefepime per infectious disease. Patient will discontinue cefepime and be started on 500 mg daily of meropenem IV and Flagyl 500 mg TID per infectious disease. Infectious disease determined the patient will need a midline inserted in order to receive his IV antibiotics. Continue with recommendations from infectious disease 4. Chronic lower extremity wounds On antibiotics Infectious disease following 5. End-stage renal disease on dialysis Dialysis on Thursday, Thursday, Thursday. Hemodialysis tomorrow Bone mineral density maintained by PhosLo 6. Insulin-dependent diabetes mellitus Currently on 15 units of Levemir at bedtime and NovoLog High blood sugar control - Sent home with instructions to use Lantus 20 units at night Additionally 5 units of Humalog with meals 7. Hypertension with chronic kidney disease Hold losartan and amlodipine Decrease dose of hydralazine to 50 mg 3 times daily, hold if systolic blood pressure below 120 - Sent home on home blood pressure medications, losartan discontinued 8. Anemia of chronic kidney disease Ferritin noted to be elevated Hgb on arrival was 10.6, on 11/29 was 9.2, will follow-up with routine CBCs starting 12/01 Monitor CBC Aranesp has been added Hospital course; 38-year-old gentleman with past medical significant for end-stage renal disease on dialysis, diabetes mellitus presented to ER because of feeling of generalized weakness and bodyaches. Patient stated that he was all right a few days ago and started noticing that he was getting weak and he was having generalized body aches. Patient also complaining of abdominal pain. Patient was complaining of nausea and vomiting. Patient stated that he went to his dialysis session on Thursday but the session was cut short as he was not tolerating it and his blood pressure was low. Patient was also complaining of bilateral shoulder pains. There was no complaint of fever or chills. Patient states that he was compliant with his insulin regimen. Patient also is complaining of swelling of lower extremities and has noticed increased warmth and redness of lower extremities, patient also notes increased discharge. Because of the symptoms, patient went to the ER Initial lab work done in the ER showed WBC 8.8, hemoglobin 10.6, platelet count 247, sodium 137, potassium 6.8, BUN 91, creatinine 8.38 glucose is 243 lactate of 7.7 acetone is positive Influenza A not detected Influenza B not detected RSV not detected COVID-19 not detected EKG done in the ER showed heart rate of 94, no ST segment elevation or depression seen, no T-wave inversions seen. Chest x-ray done in the ER showed low lung volumes with generalized hazy appearance which could represent atelectasis 11/30 -patient seen at bedside today. Patient states he is feeling slightly better today than yesterday, however after dialysis he always feels worn down and he had dialysis on 11/29. Patient's mother was at the bedside with him, answered all of her questions appropriately. Infectious diseases consulted and is following the patient. Nephrology has been consulted and is following the patient, patient will receive hemodialysis again tomorrow on 12/01. 12/01 -patient seen at bedside today. He states he is feeling better today than yesterday, has been tolerating diet well, and been able to go to the bathroom regularly. Patient's glucose at 5:59 AM on 12/01 was 115, per nurses report patient received 5 units of NovoLog at 9 PM on 11/30 and 15 units of Levemir at 10:40 PM on 11/30. Lower extremity wounds continue to be weepy, cultures grew Pseudomonas and Klebsiella for which infectious disease added cefepime. Patient has hemodialysis scheduled for later today. He inquired about the possibility of discharge and has no current complaints. Awaiting infectious disease determination of a PICC line as needed for IV antibiotics or if it will be done via his dialysis. 12/02 - Patient seen at bedside today. Patient states he is feeling better today than he was yesterday, on appearance he looks better than he has the past couple of days, he was sitting in the chair today rather than lying/sitting in his bed. States he has been tolerating his diet well and able to go to the bathroom regularly. Patient's only present concern is his glucose control, first thing this morning at 6 AM his glucose was 448, he was given 24 units of NovoLog, his glucose was taken again at 7:56 AM and was still 427. Per infectious disease, with the cultures growing Klebsiella, Pseudomonas and Bacteroides, per infectious disease patient will discontinue cefepime and start meropenem 500 mg daily. Discussed with the patient his desire/the possibility of discharge today pending the determination of whether his antibiotics can be taken via his dialysis or if it would have to be done through the placement of a new midline. 12/03 - Patient seen at bedside today. States he continues to feel a little better, however states his continued hiccups are becoming a bother. Overall tolerating his diet well and has been able to go to the bathroom well, however had an episode of vomiting up his dinner last night. Has continued taking Flagyl and Merepenim, per infectious disease's recommendation. Infectious disease dete rmined the patient would need the insertion of a midline to administer IV antibiotics. He has no current complaints. PHYSICAL EXAMINATION: GENERAL: The patient is alert and oriented x3, not in any acute distress. Well developed, well nourished. HEENT: Pupils are round and equally reacting to light. EOMI. No scleral icterus. No conjunctival pallor. Normocephalic, atraumatic. No pharyngeal erythema. No thyromegaly. CARDIOVASCULAR: S1 and S2 present. No murmurs, rubs, or gallops. PULMONARY: Chest is clear to auscultation, no wheezing or crackles. ABDOMEN: Soft, nontender, nondistended, normoactive bowel sounds. No palpable organomegaly. MUSCULOSKELETAL: No joint swelling or deformity. EXTREMITIES: No cyanosis, clubbing, or pedal edema. NEUROLOGICAL: Gross neurological examination did not reveal any focal deficits. SKIN: No rashes. Dictation was produced using [employer] software. please excuse any grammatical, word or spelling errors. Patient Condition at Discharge: Serious Plan - Discharge Summary Discharge Rx Participant: No New Discharge Prescriptions: Continue Sertraline [Zoloft] 50 mg PO DAILY Glucagon Emergency Kit 1 mg IM DIRECTED PRN PRN Reason: Blood Sugar - Low Mupirocin 2% Oint [Bactroban 2% Oint] 1 applic TOPICAL TID PRN PRN Reason: Skin Irritation Insulin Lispro [humaLOG Kwikpen] See Protocol SQ AC-TID Atorvastatin [Lipitor] 20 mg PO DAILY Ondansetron [Zofran] 4 mg PO Q12HR PRN PRN Reason: Nausea And Vomiting hydrALAZINE HCL [Apresoline] 100 mg PO TID Calcium Acetate [PhosLo] 1,334 mg PO TID-W/MEALS amLODIPine [Norvasc] 5 mg PO DAILY Pantoprazole Sodium [Protonix] 40 mg PO BID carvediloL [Coreg] 25 mg PO BID Insulin Lispro [humaLOG Kwikpen] 5 unit SQ AC-TID Changed Insulin Glargine,Hum.rec.anlog [Lantus Solostar Pen] 20 units SQ HS #1 pen Discontinued Insulin Glargine,Hum.rec.anlog [Lantus Solostar Pen] 10 units SQ HS Losartan [Cozaar] 25 mg PO DAILY Discharge Medication List Atorvastatin [Lipitor] 20 mg PO DAILY 11/29/23 [History] Calcium Acetate [PhosLo] 1,334 mg PO TID-W/MEALS 11/29/23 [History] Glucagon Emergency Kit 1 mg IM DIRECTED PRN 11/29/23 [History] Insulin Lispro [humaLOG Kwikpen] 5 unit SQ AC-TID 11/29/23 [History] Insulin Lispro [humaLOG Kwikpen] See Protocol SQ AC-TID 11/29/23 [History] Mupirocin 2% Oint [Bactroban 2% Oint] 1 applic TOPICAL TID PRN 11/29/23 [History] Ondansetron [Zofran] 4 mg PO Q12HR PRN 11/29/23 [History] Pantoprazole Sodium [Protonix] 40 mg PO BID 11/29/23 [History] Sertraline [Zoloft] 50 mg PO DAILY 11/29/23 [History] amLODIPine [Norvasc] 5 mg PO DAILY 11/29/23 [History] carvediloL [Coreg] 25 mg PO BID 11/29/23 [History] hydrALAZINE HCL [Apresoline] 100 mg PO TID 11/29/23 [History] Insulin Glargine,Hum.rec.anlog [Lantus Solostar Pen] 20 units SQ HS #1 pen 12/04/23 [Rx] Follow up Appointment(s)/Referral(s): Carl,MD Mckenzie [REFERRING] - 1-2 Days None,Stated [Primary Care Provider] - 1-2 days [facility], [REFERRING] - [facility] Visiting Nurse, [NON-STAFF] -
--- NOTE | 2023-12-04 15:45 | P.PN ---
Subjective Progress Note Date: 12/04/23 Principal diagnosis: Reason for follow-up is bilateral lower extremity venous stasis ulcer and cellulitis Patient is a 38-year-old male with a past medical history significant for diabetes mellitus hypertension patient did have a end-stage renal disease on dialysis also with bilateral lower extremity venous stasis ulcer admitted to hospital with worsening swelling and drainage concerning for cellulitis. On today's evaluation that is 12/04/2023, patient has been afebrile, patient is breathing comfortably and is currently on 2 L nasal oxygen, patient denies having any significant cough no chest pain shortness of breath, patient denies nausea vomiting or diarrhea and no abdominal pain, patient bilateral lower extremity swelling and drainage has decreased mention feeling slightly better. Patient did have white, 6.7, creatinine 6.75 Objective - Vital Signs Vital signs: Vital Signs Temp 97.6 F 12/04/23 11:50 Pulse 77 12/04/23 11:50 Resp 18 12/04/23 11:50 BP 135/63 12/04/23 11:50 Pulse Ox 100 12/04/23 11:50 FiO2 Intake & Output 12/03/23 12/04/23 12/04/23 18:59 06:59 18:59 Intake Total 498 790 120 Output Total 1000 0 Balance -502 790 120 Weight 87.5 kg Intake: IV 20 10 Invasive Line 4 20 10 Oral 478 780 120 Output: Urine 0 Emesis 1000 Other: # Voids 0 # Bowel Movements 1 0 - Exam GENERAL DESCRIPTION: Middle-age male up in bed in no distress RESPIRATORY SYSTEM: Unlabored breathing , decreased breath sounds at bases HEART: S1 S2 regular rate and rhythm , ABDOMEN: Soft , no tenderness EXTREMITIES: Bilateral lower extremity diffuse swelling and weeping edema and drainage - Labs CBC & Chem 7: 12/04/23 06:49 12/04/23 06:49 Labs: Abnormal Lab Results - Last 24 Hours (Table) 12/03/23 12/03/23 12/04/23 Range/Units 16:39 20:18 06:49 RBC 3.23 L (4.30-5.90) m/uL Hgb 9.0 L (13.0-17.5) gm/dL Hct 29.8 L (39.0-53.0) % MCHC 30.3 L (31.0-37.0) g/dL RDW 15.8 H (11.5-15.5) % Lymphocytes # 0.8 L (1.0-4.8) k/uL Sodium (137-145) mmol/L Potassium (3.5-5.1) mmol/L BUN (9-20) mg/dL Creatinine (0.66-1.25) mg/dL POC Glucose (mg/dL) 205 H 189 H (70-110) mg/dL Calcium (8.4-10.2) mg/dL 12/04/23 12/04/23 Range/Units 06:49 11:51 RBC (4.30-5.90) m/uL Hgb (13.0-17.5) gm/dL Hct (39.0-53.0) % MCHC (31.0-37.0) g/dL RDW (11.5-15.5) % Lymphocytes # (1.0-4.8) k/uL Sodium 136 L (137-145) mmol/L Potassium 5.5 H (3.5-5.1) mmol/L BUN 65 H (9-20) mg/dL Creatinine 6.75 H (0.66-1.25) mg/dL POC Glucose (mg/dL) 298 H (70-110) mg/dL Calcium 8.0 L (8.4-10.2) mg/dL Microbiology - Last 24 Hours (Table) 11/29/23 22:36 Anaerobic Culture - Final Leg - Right Bacteroides fragilis Assessment and Plan (1) Bilateral leg ulcer Current Visit: Yes Status: Acute Code(s): L97.919 - NON-PRS CHRONIC ULC UNSP PRT OF R LOW LEG W UNSP SEVERITY; L97.929 - NON-PRS CHRONIC ULC UNSP PRT OF L LOW LEG W UNSP SEVERITY SNOMED Code(s): 96216431 (2) Allergy to multiple antibiotics Current Visit: Yes Status: Acute Code(s): Z88.1 - ALLERGY STATUS TO OTHER ANTIBIOTIC AGENTS SNOMED Code(s): 179985469 (3) Bilateral lower leg cellulitis Current Visit: Yes Status: Acute Code(s): L03.116 - CELLULITIS OF LEFT LOWER LIMB; L03.115 - CELLULITIS OF RIGHT LOWER LIMB SNOMED Code(s): 452841121 Plan: 1patient presented to hospital with bilateral lower extremity weeping edema ulceration and concerning for cellulitis likely a venous stasis and did have some pustules to the left lower extremity and a chronic ulceration likely from gram-positive skin melquiades. 2patient has been evaluated by vascular surgery and did have some bedside debridement and did not recommend any further workup 3local wound care with the dry Aquacel silver dressing to the ulceration followed by Tim wrap from just above the toe to below the knee. 4local culture now growing ESBL Klebsiella, Pseudomonas and Bacteroides plan is to get midline and a 2-week course of meropenem on discharge, discussed with admitting team working on discharge Dictation was produced using [employer] dictation software. please excuse any grammatical, word or spelling errors. Time with Patient: Less than 30
[2023-12-04 16:24] VITALS: TEMP 97.6
[2023-12-04 16:36] LABS: Glucose,Whole Blood 189 mg/dL (70-110)
[2023-12-04 20:21] LABS: Glucose,Whole Blood 280 mg/dL (70-110)
[2023-12-04 22:12] VITALS: BP 163/81; PULSE 80; RESP 18
== END 2023-12-04 23:00 | disposition home health service (06) | DRG 637 ==
LOC: EC 16:18 → 3SCARD 19:45
PROVIDERS: ADMIT Hospitalist; ATTEND Hospitalist
PROC: 5A1D70Z Performance of Urinary Filtration, Intermittent, Less than 6 Hours Per Day (ICD-10-PCS; principal; 2023-11-30)
PROC: 05HB33Z Insertion of Infusion Device into Right Basilic Vein, Percutaneous Approach (ICD-10-PCS; 2023-12-04 14:25)
DX: E11.10 Type 2 diabetes mellitus with ketoacidosis without coma (principal); N18.6 End stage renal disease; J96.11 Chronic respiratory failure with hypoxia; I12.0 Hypertensive chronic kidney disease with stage 5 chronic kidney disease or end stage renal disease; L03.115 Cellulitis of right lower limb; L03.116 Cellulitis of left lower limb; L97.819 Non-pressure chronic ulcer of other part of right lower leg with unspecified severity; L97.829 Non-pressure chronic ulcer of other part of left lower leg with unspecified severity; D63.1 Anemia in chronic kidney disease; I83.018 Varicose veins of right lower extremity with ulcer other part of lower leg; I83.028 Varicose veins of left lower extremity with ulcer other part of lower leg; F32.A Depression, unspecified; E11.22 Type 2 diabetes mellitus with diabetic chronic kidney disease; Z99.2 Dependence on renal dialysis; Z79.4 Long term (current) use of insulin; Z28.310 Unvaccinated for COVID-19; B96.1 Klebsiella pneumoniae [K. pneumoniae] as the cause of diseases classified elsewhere; B96.5 Pseudomonas (aeruginosa) (mallei) (pseudomallei) as the cause of diseases classified elsewhere; B96.6 Bacteroides fragilis [B. fragilis] as the cause of diseases classified elsewhere; E87.5 Hyperkalemia; G47.33 Obstructive sleep apnea (adult) (pediatric); I89.0 Lymphedema, not elsewhere classified; F41.9 Anxiety disorder, unspecified; E83.9 Disorder of mineral metabolism, unspecified; M25.511 Pain in right shoulder; M25.512 Pain in left shoulder; Z99.81 Dependence on supplemental oxygen; Z79.899 Other long term (current) drug therapy; Z87.891 Personal history of nicotine dependence; Z86.14 Personal history of Methicillin resistant Staphylococcus aureus infection; Z88.1 Allergy status to other antibiotic agents; Z88.5 Allergy status to narcotic agent; Z88.2 Allergy status to sulfonamides; Z88.8 Allergy status to other drugs, medicaments and biological substances; Z88.6 Allergy status to analgesic agent; Z91.041 Radiographic dye allergy status
CPT/HCPCS: 36410; 36415; 71046; 76937; 80048; 80051; 80053; 80202; 82009; 82565; 82728; 82803; 82947; 83540; 83550; 83605; 83735; 84100; 84520; 85025; 85610; 85730; 87040; 87070; 87075; 87077; 87186; 87205; 87636; 90935; 93005; 94760; 96365; 96366; 96375; 99291

== ENCOUNTER 2023-12-09 16:57 | Observation (INO) | payer MEDICARE, OTHER ==
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
--- NOTE | 2023-12-09 18:34 | XR ---
EXAMINATION TYPE: XR chest 1V confirm line plcmt DATE OF EXAM: 12/09/2023 6:30 PM CLINICAL INDICATION:Male, 38 years old with history of displaced PICC line; [facility] COMPARISON: Chest radiographs from 11/29/2023 TECHNIQUE: XR chest 1V confirm line plcmt Frontal view of the chest. FINDINGS: Lungs/Pleura: There is no evidence of pleural effusion, focal consolidation, or pneumothorax. Pulmonary vascularity: Mild pulmonary vascular congestion. Heart/mediastinum: Cardiomediastinal silhouette is prominent in size. Musculoskeletal: No acute osseous pathology. IMPRESSION: 1. No PICC line visualized. 2. Mild pulmonary edema suggested.
[2023-12-09] MEDS: MEROPENEM 500 MG in SODIUM CHLORIDE 0.9% 100 ML IVPB STA (18:39)
[2023-12-09] MEDS: metroNIDAZOLE-NS PMX 500 MG in SALINE 1 100ML.BAG IVPB STA (19:28)
[2023-12-09 20:37] LABS: Anisocytosis Slight; Basophils # (A) 0.1 k/uL (0-0.2); Basophils % (A) 1 %; Eosinophils # (A) 0.5 k/uL (0-0.7); Eosinophils % (A) 5 %; HCT 31.2 % (39.0-53.0); HGB 9.5 gm/dL (13.0-17.5); Hypochromasia Marked; Lymphocytes # (A) 1.2 k/uL (1.0-4.8); Lymphocytes % (A) 13 %; MCH 28.6 pg (25.0-35.0); MCHC 30.5 g/dL (31.0-37.0); MCV 93.7 fL (80.0-100.0); Mean Platelet Volume 8.2; Monocytes # (A) 0.8 k/uL (0-1.0); Monocytes % (A) 8 %; Neutrophils % (A) 72 %; Platelet Count 304 k/uL (150-450); RBC 3.33 m/uL (4.30-5.90); WBC 9.6 k/uL (3.8-10.6)
[2023-12-09] MEDS: CALCIUM ACETATE 667 MG TAB PO SCH (20:38)
[2023-12-09 20:48] LABS: INR 1.1 (<1.2); Partial Thromboplastin Time 27.2 sec (22.0-30.0); Prothrombin Time 11.5 sec (10.0-12.5)
[2023-12-09 20:57] LABS: ALT 30 U/L (4-49); African American GFR (CKD) 17 (>60 ml/min/1.73 sqM); Albumin 3.7 g/dL (3.5-5.0); Anion Gap 10 mmol/L; Blood Urea Nitrogen 46 mg/dL (9-20); Calcium 8.4 mg/dL (8.4-10.2); Carbon Dioxide 28 mmol/L (22-30); Chloride 100 mmol/L (98-107); Glucose 150 mg/dL (74-99); Non-African American GFR(CKD) 14 (>60 ml/min/1.73 sqM); Sodium 138 mmol/L (137-145); Total Bilirubin 0.9 mg/dL (0.2-1.3); Total Protein 8.2 g/dL (6.3-8.2)
[2023-12-09 20:59] LABS: AST 53 U/L (17-59); Alkaline Phosphatase 686 U/L (38-126); Potassium 5.3 mmol/L (3.5-5.1)
[2023-12-09] MEDS ORDERED: NALOXONE 0.4 MG/ML 1 ML VIAL IV PRN (21:37)
[2023-12-09] MEDS ORDERED: GLUCAGON 1 MG/ML VIAL IM PRN (21:39)
[2023-12-09] MEDS ORDERED: ONDANSETRON 4 MG TAB PO PRN (21:39)
[2023-12-09] MEDS: hydrALAZINE HCL 50 MG TAB PO SCH (22:16)
[2023-12-09] MEDS: HYDROcodone/APAP 7.5-325MG 1 EACH TAB PO ONE (22:17)
[2023-12-10 05:53] LABS: Glucose,Whole Blood 106 mg/dL (70-110)
[2023-12-10] MEDS ORDERED: ACETAMINOPHEN TAB 325 MG TAB PO PRN (06:20)
[2023-12-10 06:23] LABS: Glucose,Whole Blood 89 mg/dL (70-110)
[2023-12-10 06:57] LABS: Glucose,Whole Blood 130 mg/dL (70-110)
[2023-12-10] MEDS: SERTRALINE 50 MG TAB PO SCH (08:12)
[2023-12-10] MEDS: ATORVASTATIN 20 MG TAB PO SCH (08:12)
[2023-12-10] MEDS: amLODIPine 5 MG TAB PO SCH (08:12)
[2023-12-10] MEDS: PANTOPRAZOLE 40 MG TABLET PO SCH (08:12)
[2023-12-10 08:13] VITALS: BP 160/61; PULSE 83; RESP 16; TEMP 97.6
[2023-12-10] MEDS: carvediloL 12.5 MG TAB PO SCH (08:20)
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
== END 2023-12-10 11:24 | disposition home or self-care (01) ==
LOC: EC 16:57 → 6NMEDSUR 21:41
PROVIDERS: ADMIT Hospitalist; ATTEND Hospitalist
DX: T82.524A Displacement of infusion catheter, initial encounter (principal); E11.22 Type 2 diabetes mellitus with diabetic chronic kidney disease; E87.5 Hyperkalemia; D63.1 Anemia in chronic kidney disease; H54.62 Unqualified visual loss, left eye, normal vision right eye; I12.0 Hypertensive chronic kidney disease with stage 5 chronic kidney disease or end stage renal disease; F32.A Depression, unspecified; F41.9 Anxiety disorder, unspecified; L03.115 Cellulitis of right lower limb; L03.116 Cellulitis of left lower limb; N18.6 End stage renal disease; Y71.2 Prosthetic and other implants, materials and accessory cardiovascular devices associated with adverse incidents; Z79.4 Long term (current) use of insulin; Z79.899 Other long term (current) drug therapy; Z87.891 Personal history of nicotine dependence; Z99.2 Dependence on renal dialysis; Z86.14 Personal history of Methicillin resistant Staphylococcus aureus infection
CPT/HCPCS: 36415; 36410; 76937; 80053; 85025; 85610; 85730; G0378 ×2; C1751; J2185; J1836; 96365; 96366; 99285